=== PATIENT | female | born 2000 | race Caucasian/White ===

== ENCOUNTER 2023-02-01 11:18 | Emergency (ER) | payer OTHER, SELFPAY ==
--- NOTE | ~2023-02-01 | US_ITS ---
US venous doppler LE RT DATE: 02/01/2023 12:27 INDICATION: Redness and swelling of right calf. By 8 3 days ago. TECHNIQUE: Real-time and color flow imaging and Doppler analysis of the veins of the right lower extr emity COMPARISON: None FINDINGS: The right greater saphenous vein is patent. There is spontaneous and phasic flow and normal augmentation and color flow signal and normal compression of the right common femoral, femoral, popl iteal, posterior tibial and peroneal veins. IMPRESSION: No evidence of deep venous thrombosis of right leg Reviewed, dictated and finalized at [facility]. Reviewed, dictated and finalized at [facility].
[2023-02-01 11:21] VITALS: BP 140/84; PULSE 110; RESP 16; TEMP 36.8; O2SAT 99
--- NOTE | 2023-02-01 13:20 | ED.SKABFB ---
HPI - Skin/Abscess/Foreign Bdy General Chief complaint: Skin/Abscess/Foreign Body Stated complaint: bug bite Time Seen by Provider: 02/01/23 12:04 Source: patient Mode of arrival: ambulatory Limitations: no limitations History of Present Illness HPI narrative: Patient is a 22-year-old female who presents ED with report of cellulitis to her right calf. Patient reports she was walking outside on Sunday and felt something bite her in her R upper calf. She has since developed an area of pain, redness, induration, warmth to her calf. She was Rx'd Doxycycline yesterday and outlined the erythema with a skin marker. She has had two doses of the Doxy so far. She noted the redness to have spread past her marked outline today which prompted her presentation. Denies any drainage from area. Denies fevers. Denies N/V. Review of Systems Review of Systems: CONSTITUTIONAL: Denies fever, chills, or sweats. GASTROINTESTINAL: Denies nausea, vomiting. SKIN: See HPI. MUSCULOSKELETAL: See HPI. All systems reviewed & are unremarkable except as noted in HPI and below Exam Narrative: GENERAL: Well appearing, well-nourished, non-toxic, in no acute distress. HEAD: Normocephalic, atraumatic. NECK: Supple. No adenopathy, no masses. RESPIRATORY: Airway patent, respirations nonlabored. Clear to auscultation bilaterally, no rales, rhonchi, wheezing. CARDIOVASCULAR: Regular rate and rhythm without murmurs, rubs, or gallops. Pedal pulses 2+ and equal bilaterally. MUSCULOSKELETAL: Moves all extremities. Strength/ROM intact without gross deformities. Large area of induration, erythema, warmth, tenderness to palpation to R upper posterior calf. Small pustular area close to popliteal crease, no active drainage. No palpable fluctuance. SKIN: Warm, dry, normal color. No rashes. NEURO: A&O X3. Speech clear. Cranial nerves II-XII grossly intact. Steady gait. No ataxic movements. PSYCHIATRIC: Appropriate mood and affect. Normal interaction. Course Vital Signs Vital signs: Vital Signs Temperature 98.2 F 02/01/23 11:21 Pulse Rate 110 H 02/01/23 11:21 Respiratory Rate 16 02/01/23 11:21 Blood Pressure 140/84 02/01/23 11:21 Pulse Oximetry 99 02/01/23 11:21 Oxygen Delivery Room Air 02/01/23 11:21 Temperature 98.2 F 02/01/23 11:21 Pulse Rate 91 02/01/23 13:44 Respiratory Rate 16 02/01/23 11:21 Blood Pressure 136/72 02/01/23 13:44 Pulse Oximetry 99 02/01/23 13:44 Oxygen Delivery Room Air 02/01/23 11:21 MDM - Skin/Abscess/Foreign Bdy MDM Narrative Medical decision making narrative: Patient presented to ED with concern for cellulitis to R calf, erythema continuing to worsen, has had 2 doses of doxy so far. VSS upon arrival. Afebrile. Exam consistent with cellulitis. No obvious fluctuance or area of abscess. Bedside ultrasound utilized by myself and no focal areas of fluid collection noted. Venous Doppler ultrasound without evidence of DVT or other abnormalities. I advised patient that the antibiotics likely have not had enough time to be in her system and that the redness may continue to expand until the antibiotics have fully taken effect. I do believe doxycycline is an appropriate medication and advised patient to continue this. Will prescribe clindamycin in case patient does not have improvement over the next couple of days with doxycycline. Advised close follow-up with primary care doctor. Given return precautions. Discharged in stable condition. Medical Records Attestation: I reviewed the patient's medical records. Imaging Data Attestation: I personally reviewed and interpreted this imaging study as follows: Radiologist's impression: ITS Impressions Venous Doppler Study 02/01/23 12:34 IMPRESSION: No evidence of deep venous thrombosis of right leg Discharge Plan Discharge Clinical Impression: Cellulitis of right lower extremity Patient Disposition: Home, Self-Care Condition: Stable
[2023-02-01 13:44] VITALS: BP 136/72; PULSE 91; O2SAT 99
== END 2023-02-01 13:45 | disposition home or self-care (01) ==
PROVIDERS: Emergency Provider Physician Assistant; PCP Family Medicine
DX: L03.115 Cellulitis of right lower limb (principal)
CPT/HCPCS: 93971; 99284

== ENCOUNTER 2023-09-14 11:01 | Outpatient (CLI) | payer OTHER, SELFPAY ==
[2023-09-19 07:28] LABS: Progesterone 19.8 ng/mL (***)
== END 2023-09-14 11:02 | disposition home or self-care (01) ==
LOC: ANHLAB 11:03
PROVIDERS: PCP Family Medicine; Visit Provider Obstetrics & Gynecology
DX: O20.0 Threatened abortion (principal)
CPT/HCPCS: 36415; 84144; 84702

== ENCOUNTER 2023-09-19 14:15 | Outpatient (CLI) | payer OTHER, SELFPAY ==
--- NOTE | ~2023-09-19 | US_ITS ---
EXAMINATION: US OB <=14 wk fetus w TV DATE: 09/19/2023 16:12 INDICATION: First trimester TECHNIQUE: Real-time pelvic ultrasound utilizing both a transvaginal and transabdominal probe was pe rformed. The interpreting radiologist was not present for the study. COMPARISON: None. FINDINGS: The uterus measures 9.3 x 5.1 x 5.6 cm. There is an intrauterine gestational sac. A yolk sac and fet al pole are identified. The crown rump length measures 506 mm, which correlates with an estimated ges tational age of 6 weeks and 3 days. heart motion is identified measuring 120 beats per minute ( bpm) by M-mode Doppler. The right ovary measures 3.2 x 1.8 x 2.1 cm. The left ovary measures 3.1 x 2.8 x 2.2 cm. 2.6 x 2.0 cm thick-walled centrally anechoic corpus luteum cyst in the left ovary. There is no free fluid in the pelvis. IMPRESSION: 1. Single living fetus with heart rate of 120 bpm. 2. Gestational age by ultrasound of 6 weeks 3 day(s) +/- 3 day(s) with ultrasound estimated date of delivery (RUBÉN) of 05/11/2024. Reviewed, dictated and finalized at location [facility]. IMPRESSION: 1. Single living fetus with heart rate of 120 bpm. 2. Gestational age by ultrasound of 6 weeks 3 day(s) +/- 3 day(s) with ultraso und estimated date of delivery (RUBÉN) of 05/11/2024.
== END 2023-09-19 14:16 | disposition home or self-care (01) ==
LOC: ANHIMG 14:17
PROVIDERS: PCP Family Medicine; Visit Provider Obstetrics & Gynecology
DX: Z34.80 Encounter for supervision of other normal pregnancy, unspecified trimester (principal)
CPT/HCPCS: 76801; 76817

== ENCOUNTER 2024-02-09 10:24 | Outpatient (RCR) | payer OTHER, SELFPAY ==
[2024-02-09 11:55] LABS: Hematocrit 33.2 % (37.0-47.0); Hemoglobin 10.9 g/dL (12.0-15.0)
[2024-02-09 12:06] LABS: Glucose 1 Hour PP 50gm Dose 144 mg/dL
[2024-02-09 12:47] LABS: HIV 1/2 Ab P24 Ag Result Negative (Negative)
[2024-02-11 06:15] LABS: Rapid Plasma Reagin Non-Reactive (NonReactive)
== END 2024-05-09 23:59 | disposition home or self-care (01) ==
LOC: ANHLAB 10:24
PROVIDERS: PCP Family Medicine; Visit Provider Obstetrics & Gynecology
DX: Z11.4 Encounter for screening for human immunodeficiency virus [HIV] (principal); Z11.3 Encounter for screening for infections with a predominantly sexual mode of transmission; O36.0190 Maternal care for anti-D [Rh] antibodies, unspecified trimester, not applicable or unspecified; Z3A.00 Weeks of gestation of pregnancy not specified
CPT/HCPCS: 36415; 82947; 85014; 85018; 86592; 86703; G0432

== ENCOUNTER 2024-02-29 07:24 | Outpatient (CLI) | payer OTHER, SELFPAY ==
[2024-02-29 07:50] LABS: Glucose Fasting Gestational 88 mg/dL (>/=95)
[2024-02-29 09:15] LABS: Glucose 1 Hour Gest 158 mg/dL (>/=180)
[2024-02-29 10:27] LABS: Glucose 2 Hour Gest 121 mg/dL (>/= 155)
[2024-02-29 11:33] LABS: Glucose 3 Hour Gest 107 mg/dL (>/=140)
== END 2024-02-29 07:25 | disposition home or self-care (01) ==
PROVIDERS: PCP Family Medicine; Visit Provider Obstetrics & Gynecology
DX: Z34.83 Encounter for supervision of other normal pregnancy, third trimester (principal)
CPT/HCPCS: 36415; 82951; 82952

== ENCOUNTER 2024-03-25 09:20 | Outpatient (CLI) | payer OTHER, SELFPAY ==
--- NOTE | ~2024-03-25 | US_ITS ---
EXAMINATION: US OB follow up DATE: 03/25/2024 11:01 INDICATION: Estimated size greater than expected for estimated gestational age TECHNIQUE: Real-time ultrasound of the pelvis was performed. The interpreting radiologist was not pre sent for the study. COMPARISON: 09/19/2023 FINDINGS: There is a single living fetus in vertex presentation. The placenta is fundal. heart rate is 1 30 beats per minute (bpm). The amniotic fluid index is 16.0 cm, which is normal (5th%-95%: 8.3-24.5 cm at 33 weeks estimated gestational age). The following biometric data were obtained: BPD: 9.0 cm -> 36 weeks 2 days Head circumference: 31.6 cm -> 35 weeks 4 days Abdominal circumference: 31.3 cm -> 35 weeks 2 days Femur length: 6.1 cm -> 31 weeks 4 days These measurements are concordant. Head circumference to abdominal circumference ratio: 1.01 (normal range 0.93-1.11). Estimated weight: 2418 g (+/-) 363 g or 5 lbs. 5 oz. (+/-) 13 oz. IMPRESSION: 1. Single living fetus in vertex presentation with heart rate of 130 bpm. 2. Normal amniotic fluid index of 16.0 cm. 3. Estimated weight is 76th percentile by Hadlock criteria when 05/11/2024 is used as the estima demetrius date of delivery (RUBÉN). Please correlate with clinical information or earlier ultrasounds for mos t accurate RUBÉN. Reviewed, dictated and finalized at location [facility]. IMPRESSION: 1. Single living fetus in vertex presentation with heart rate of 130 bpm. 2. Normal amniotic fluid index of 16.0 cm. 3. Estimated weight is 76th percentile by Hadlock criteria when 05/11/2024 is used as the estimated date of delivery (RUBÉN). Please correlate with clinica l information or earlier ultrasounds for most accurate RUBÉN.
== END 2024-03-25 09:21 | disposition home or self-care (01) ==
PROVIDERS: PCP Family Medicine; Visit Provider Obstetrics & Gynecology
DX: O26.849 Uterine size-date discrepancy, unspecified trimester (principal); Z3A.00 Weeks of gestation of pregnancy not specified
CPT/HCPCS: 76816

== ENCOUNTER 2024-04-30 09:06 | Outpatient (CLI) | payer OTHER, SELFPAY ==
--- NOTE | ~2024-04-30 | US_ITS ---
EXAMINATION: US OB follow up DATE: 04/30/2024 10:33 INDICATION: Assess growth during third trimester TECHNIQUE: Real-time ultrasound of the pelvis was performed. The interpreting radiologist was not pre sent for the study. COMPARISON: None. FINDINGS: There is a single living fetus in vertex presentation. The placenta is fundal. heart rate is 1 39 beats per minute (bpm). The amniotic fluid index is 11.8 cm, which is normal. Normal cervical jeffery gth measuring approximately 4.7 cm. The following biometric data were obtained: BPD: 10.1 cm -> 41 weeks 4 days Head circumference: 34.6 cm -> 40 weeks 0 days Abdominal circumference: 37.3 cm -> 41 weeks 2 days Femur length: 7.5 cm -> 38 weeks 4 days Mildly increased cephalic index of 88, (normal 70-86) These measurements are otherwise concordant. Head circumference to abdominal circumference ratio: 0.93 (normal range 0.91-1.02). Estimated weight: 4152 g (+/-) 623 g or 9 lbs. 2 oz. (+/-) 1 lb. 6 oz. IMPRESSION: 1. Single living fetus in vertex presentation with heart rate of 139 bpm. 2. Normal amniotic fluid index of 11.8. 3. Estimated weight is >97th percentile by Hadlock criteria when 05/11/2024 is used as the estim ated date of delivery (RUBÉN). Please correlate with clinical information or earlier ultrasounds for mo st accurate RUBÉN. 4. Brachycephaly with the cephalic index of 88. Reviewed, dictated and finalized at location A. IMPRESSION: 1. Single living fetus in vertex presentation with heart rate of 139 bpm. 2. Normal amniotic fluid index of 11.8. 3. Estimated weight is >97th percentile by Hadlock criteria when 4 is used as the estimated date of delivery (RUBÉN). Please correlate with clinic al information or earlier ultrasounds for most accurate RUBÉN. 4. Brachycephaly with the cephalic index of 88.
== END 2024-04-30 09:07 | disposition home or self-care (01) ==
PROVIDERS: PCP Family Medicine; Visit Provider Obstetrics & Gynecology
DX: Z36.4 Encounter for antenatal screening for fetal growth retardation (principal)
CPT/HCPCS: 76816

== ENCOUNTER 2024-05-05 23:02 | Inpatient (IN) | payer OTHER, SELFPAY ==
[2024-05-05 23:36] VITALS: PULSE 104; O2SAT 99
[2024-05-05 23:41] VITALS: PULSE 109; O2SAT 99
[2024-05-05 23:42] VITALS: BP 138/78; PULSE 96
[2024-05-05 23:46] VITALS: PULSE 103; O2SAT 98
[2024-05-05 23:51] VITALS: PULSE 99; O2SAT 98
[2024-05-05 23:56] VITALS: PULSE 98; O2SAT 98
[2024-05-06] VITALS (189 sets, daily range): BP systolic 101–135; BP diastolic 48–92; PULSE 81–147; TEMP 36.4–37.8; O2SAT 95–100; BMI 38.5
--- NOTE | 2024-05-06 00:41 | LDADM ---
This patient, Jolanta Sousa, was admitted to Labor/Delivery/Recovery 109 on 05/05/24 at 23:02. Plans for labor, pain management and were discussed with patient. Patient/family oriented to hospital policies and general routines including ID bracelet, bed and alarms, visiting hours, pain management, procedures, bathroom and other care routines, personal items, smoking policy, room service/diet and guest tray routines, security routines, and visiting hours. Patient/Family are encouraged to report perceived risks to care and to ask questions if they do not understand what they are told or what they should do. See OBIX for further documentation.
[2024-05-06 00:43] LABS: Basophils Absolute Auto 0.1 K/mm3 (0.0-0.1); Basophils Percent Auto 0.8 % (0.2-1.2); Eosinophils Absolute Auto 0.1 K/mm3 (0-0.3); Eosinophils Percent Auto 0.8 % (0-4.4); Hematocrit 33.2 % (37.0-47.0); Hemoglobin 10.6 g/dL (12.0-15.0); Immature Granulocyte Percent A 4.3 % (0-0.5); Lymphocytes Absolute Auto 2.56 K/mm3 (0.9-3.2); Lymphocytes Percent Auto 18.2 % (18.3-44.2); Mean Corpuscular HGB Conc 31.9 g/dl (32-36); Mean Corpuscular Hemoglobin 25.3 pg (26-34); Mean Corpuscular Volume 79.2 fl (80-100); Mean Platelet Volume 10.2 fl (7.4-10.4); Monocytes Absolute Auto 1.3 K/mm3 (0.1-0.6); Monocytes Percent Auto 8.9 % (2.6-8.5); Neutrophils Absolute Auto 9.4 K/mm3 (1.3-6.7); Nucleated Red Blood Cells Perc 0.1 % (0.0-0.2); Platelet Count Result 287 k/mm3 (150-375); Red Blood Count 4.19 M/mm3 (4.2-5.4); Red Cell Distribution Width 15.6 % (11.5-14.5); White Blood Count 14.1 K/mm3 (4.5-10.0)
[2024-05-06 01:43] LABS: HIV 1/2 Ab P24 Ag Result Negative (Negative)
[2024-05-06] MEDS: DINOPROSTONE 10 MG VAG INSERT VAGINAL (02:30)
[2024-05-06 03:32] LABS: Rapid Plasma Reagin Non-Reactive (NonReactive)
[2024-05-06] MEDS: LORATADINE 10 MG TABLET PO ×2 (09:00→12:22)
--- NOTE | 2024-05-06 10:10 | PM.IMHP ---
H&P: HPI History of Present Illness Date/Time: 05/06/24 10:10 Chief Complaint: Here for induction of labor. Narrative: 23 y/o G1 at 39 2/7 weeks here for scheduled induction of labor. Ultrasound exam on 04/30 showed EFW 97th percentile, 9#2oz. Cervidil overnight, starting to feel some contractions. Also, she has had nasal congestion, felt flushed over the last day or two. No cough. No overt fever. Review of Systems Review of Systems: All systems reviewed & are unremarkable except as noted in HPI and below PMFSH Family History Family History Mother Breast cancer Chronic obstructive pulmonary disease Sibling Asthma Sibling Asthma Social History Social History Smoking status: Never smoker Do You Feel Safe in your Home?: Yes Lack of Transportation: YES Lack of Food: Never True Current Housing: I Have Housing Concerned About Future Housing: No Difficulty Paying Gas/Electric Bills: No Difficulty Paying for Meds: No Currently Unemployed: No Education: Bachelor's Degree Difficulty w/ Childcare or Family Care: No Spiritual care concerns: No Meds Home Medications and Allergies Home Medications Medication Instructions Recorded Confirmed Type vits no.126-ferrous fum 1 tablet PO DAILY 04/21/24 05/06/24 History 28 mg iron-folic acid 800 mcg tablet (Classic ) Allergies Allergy/AdvReac Type Severity Reaction Status Date / Time amoxicillin [From Augmentin] Allergy Rash Verified 05/06/24 07:20 clavulanic acid Allergy Rash Verified 05/06/24 07:20 [From Augmentin] Vital Signs Vital Signs - 24 hr 05/05/24 23:36 05/05/24 23:41 05/05/24 23:42 Temperature Pulse Rate 96 Blood Pressure 138/78 Pulse Oximetry 99 99 Oxygen Delivery 05/05/24 23:46 05/05/24 23:51 05/05/24 23:56 Temperature Pulse Rate Blood Pressure Pulse Oximetry 98 98 98 Oxygen Delivery 05/06/24 00:00 05/06/24 00:01 05/06/24 00:06 Temperature Pulse Rate 94 Blood Pressure 128/77 Pulse Oximetry 99 98 Oxygen Delivery 05/06/24 00:11 05/06/24 00:16 05/06/24 00:21 Temperature Pulse Rate Blood Pressure Pulse Oximetry 98 99 99 Oxygen Delivery 05/06/24 00:26 05/06/24 00:30 05/06/24 00:31 Temperature Pulse Rate 95 Blood Pressure 135/77 Pulse Oximetry 98 99 Oxygen Delivery 05/06/24 00:36 05/06/24 00:41 05/06/24 00:46 Temperature Pulse Rate Blood Pressure Pulse Oximetry 99 99 99 Oxygen Delivery 05/06/24 00:51 05/06/24 01:00 05/06/24 01:01 Temperature Pulse Rate 90 Blood Pressure 126/78 Pulse Oximetry 99 100 99 Oxygen Delivery 05/06/24 01:06 05/06/24 01:11 05/06/24 01:20 Temperature Pulse Rate Blood Pressure Pulse Oximetry 97 97 100 Oxygen Delivery 05/06/24 01:25 05/06/24 01:30 05/06/24 01:35 Temperature Pulse Rate 86 Blood Pressure 122/78 Pulse Oximetry 99 99 98 Oxygen Delivery 05/06/24 01:40 05/06/24 01:45 05/06/24 01:50 Temperature Pulse Rate Blood Pressure Pulse Oximetry 98 98 96 Oxygen Delivery 05/06/24 01:55 05/06/24 02:00 05/06/24 02:05 Temperature Pulse Rate 92 Blood Pressure 112/61 Pulse Oximetry 98 98 99 Oxygen Delivery 05/06/24 02:10 05/06/24 02:15 05/06/24 02:20 Temperature Pulse Rate Blood Pressure Pulse Oximetry 97 97 96 Oxygen Delivery 05/06/24 02:32 05/06/24 02:37 05/06/24 02:42 Temperature Pulse Rate 86 Blood Pressure 123/77 Pulse Oximetry 98 98 97 Oxygen Delivery 05/06/24 02:47 05/06/24 02:52 05/06/24 02:57 Temperature Pulse Rate Blood Pressure Pulse Oximetry 97 98 98 Oxygen Delivery 05/06/24 03:00 05/06/24 03:02 05/06/24 03:07 Temperature Pulse Rate 89 Blood Pressure 103/56 L Pulse Oximetry 98 99 Oxygen Delivery 05/06/24 03:12 05/06/24 03:17 05/06/24 03:22 Temperature Pulse Rate Blood Pressure Pulse Oximetry 98 97 97 Oxygen Delivery 05/06/24 03:27 05/06/24 03:30 05/06/24 03:32 Temperature Pulse Rate 85 Blood Pressure 109/64 Pulse Oximetry 97 99 Oxygen Delivery 05/06/24 03:37 05/06/24 03:42 05/06/24 03:47 Temperature Pulse Rate Blood Pressure Pulse Oximetry 96 97 97 Oxygen Delivery 05/06/24 03:52 05/06/24 03:57 05/06/24 04:00 Temperature Pulse Rate 91 Blood Pressure 104/67 Pulse Oximetry 97 97 Oxygen Delivery 05/06/24 04:02 05/06/24 04:07 05/06/24 04:12 Temperature Pulse Rate Blood Pressure Pulse Oximetry 96 97 97 Oxygen Delivery 05/06/24 04:17 05/06/24 04:22 05/06/24 04:27 Temperature Pulse Rate Blood Pressure Pulse Oximetry 97 98 98 Oxygen Delivery 05/06/24 04:30 05/06/24 04:32 05/06/24 04:37 Temperature 36.8 C Pulse Rate 88 Blood Pressure 107/69 Pulse Oximetry 99 98 Oxygen Delivery 05/06/24 04:42 05/06/24 04:51 05/06/24 04:56 Temperature Pulse Rate Blood Pressure Pulse Oximetry 98 100 100 Oxygen Delivery 05/06/24 05:00 05/06/24 05:01 05/06/24 05:06 Temperature Pulse Rate 86 Blood Pressure 101/60 Pulse Oximetry 100 98 Oxygen Delivery 05/06/24 06:45 05/06/24 09:04 05/06/24 07:00 Temperature 36.5 C 36.5 C Pulse Rate 98 Blood Pressure 129/72 Pulse Oximetry Oxygen Delivery 05/06/24 00:34 Temperature Pulse Rate Blood Pressure Pulse Oximetry Oxygen Delivery Room Air Exam Const: Orientation/consciousness: patient oriented x3 Other: Well-developed, well-nourished female in no acute distress. Neck: Thyroid: thyroid normal Lymphatic: no lymphadenopathy noted (in neck, axilla or inguinal nodes) Resp: Effort & Inspection: normal respiratory effort Auscultation: clear to auscultation bilaterally Cardio: Rate: regular rate Rhythm: regular rhythm Heart sounds: S1 normal heart sound present and S2 normal heart sound present GI: Other: ABD: Soft, nontender, nondistended, gravid. NST reactive. TOCO: irregular contractions. No guarding or rebound tenderness. No hepatosplenomegaly. : General: Yes no CVA tenderness Other: Cervix closed, 50%. Cervidil still in place. Back/Spine/Pelvis: Back: no CVA tenderness Skin: General skin exam: normal color and no rashes or lesions noted Neuro: General: patient oriented x3 Extrem: Other: Extremities: nontender with no edema Psych: Mental Status: mental status grossly normal Affect: normal affect H&P: Results Labs Labs: Short CBC 05/06/24 Range/Units 00:22 WBC 14.1 H (4.5-10.0) K/mm3 Hgb 10.6 L (12.0-15.0) g/dL Hct 33.2 L (37.0-47.0) % Plt Count 287 (150-375) k/mm3 Assessment and Plan Assessment and plan (1) Term : Code(s): Z34.90 - Encounter for supervision of normal , unspecified, unspecified trimester Status: Acute Assessment and Plan: A: IUP at 39 2/7 weeks. EFW 9#2oz a week ago. P: Cervidil induction. Plan to remove the Cervidil after 12h and reassess. Consider oxytocin at that time. Reviewed risks, benefits, alternatives in detail.
--- NOTE | 2024-05-06 15:22 | PM.OBPNLAB ---
Pain Control Date/time seen: 05/06/24 15:22 Feeling more contractions. Cervidil has been removed. Pelvic Exam Dilation (cm): 2 Effacement (%): 50 station: -2 Comments: AROM with clear fluid. IUPC placed. Contractions Contraction frequency: 3 Contraction pattern: Regular Status status: Category l Assessment and Plan Comments: Continue labor. Augment as needed.
[2024-05-06] MEDS: fentaNYL CITRATE INJ (*CRX) 100 MCG/2 ML VIAL 50 MCG IV PUSH (15:24)
[2024-05-06] MEDS: LACTATED RINGERS 1,000 ML 125 ML IV CONT ×2 (15:26→21:54)
[2024-05-06] MEDS: OXYTOCIN 30 UNITS/NS 500 ML 30 UNITS/500 ML BAG IV CONT (17:07)
--- NOTE | 2024-05-06 17:39 | WPDANESEPP ---
Anes - Eval Pre Procedure Date/Time: 05/06/24 17:39 Surgeon: Elena Pre Op Diagnosis: IOL Patient Data Age: 23 Gender: F Height: 1.5 m Weight: 86.4 kg Last Vital Signs Temp 36.4 C 05/06/24 15:30 Pulse 109 H 05/06/24 16:01 BP 126/68 05/06/24 16:01 Pulse Ox 99 05/06/24 16:07 O2 Del Method Room Air 05/06/24 00:34 Allergies Allergy/AdvReac Type Severity Reaction Status Date / Time amoxicillin [From Augmentin] Allergy Rash Verified 05/06/24 07:20 clavulanic acid Allergy Rash Verified 05/06/24 07:20 [From Augmentin] Home Medications Medication Instructions Recorded Confirmed Type vits no.126-ferrous fum 1 tablet PO DAILY 04/21/24 05/06/24 History 28 mg iron-folic acid 800 mcg tablet (Classic ) Laboratory Tests 05/06/24 00:22 WBC 14.1 H K/mm3 (4.5-10.0) RBC 4.19 L M/mm3 (4.2-5.4) Hgb 10.6 L g/dL (12.0-15.0) Hct 33.2 L % (37.0-47.0) MCV 79.2 L fl (80-100) MCH 25.3 L pg (26-34) MCHC 31.9 L g/dl (32-36) RDW 15.6 H % (11.5-14.5) Plt Count 287 k/mm3 (150-375) MPV 10.2 fl (7.4-10.4) Immature Gran % (Auto) 4.3 H % (0-0.5) Neut % (Auto) 67.0 % (45.5-73.1) Lymph % (Auto) 18.2 L % (18.3-44.2) Thomas % (Auto) 8.9 H % (2.6-8.5) Eos % (Auto) 0.8 % (0-4.4) Baso % (Auto) 0.8 % (0.2-1.2) Lymph # (Auto) 2.56 K/mm3 (0.9-3.2) Thomas # (Auto) 1.3 H K/mm3 (0.1-0.6) Eos # (Auto) 0.1 K/mm3 (0-0.3) Baso # (Auto) 0.1 K/mm3 (0.0-0.1) Abs Immat Gran (auto) 0.60 H K/mm3 (0.00-0.031) Absolute Neuts (auto) 9.4 H K/mm3 (1.3-6.7) Absolute Nucleated RBC 0.020 H K/mm3 (0.0-0.012) Nucleated RBC % 0.1 % (0.0-0.2) RPR Non-reactive (NonReactive) HIV 1&2 Ab/P24 Ag 4thGn Negative (Negative) Blood Type A Positive Antibody Screen Negative : gestational age (RUBÉN 05/11/24, ) Patient hx anesthesia problems: none Family hx anesthesia problems: none Results Review: All pre-operative results and documents have been reviewed as part of the pre-operative evaluation. [facility] Family History Family History Mother Breast cancer Chronic obstructive pulmonary disease Sibling Asthma Sibling Asthma Social History Social History Smoking status: Never smoker Do You Feel Safe in your Home?: Yes Lack of Transportation: YES Lack of Food: Never True Current Housing: I Have Housing Concerned About Future Housing: No Difficulty Paying Gas/Electric Bills: No Difficulty Paying for Meds: No Currently Unemployed: No Education: Bachelor's Degree Difficulty w/ Childcare or Family Care: No Spiritual care concerns: No Exam Day of Procedure 05/06/24 17:39 Patient weight: normal Heart: regular rate and rhythm Lungs: normal air movement Airway: Mallampati scale class II Neurological: alert and oriented
[2024-05-06] MEDS: ONDANSETRON INJ 4 MG/2 ML VIAL IV PUSH (23:14)
[2024-05-06] MEDS: ACETAMINOPHEN 500 MG TABLET 1000 MG PO (23:45)
[2024-05-07] VITALS (255 sets, daily range): BP systolic 86–150; BP diastolic 31–123; PULSE 96–152; RESP 12–21; TEMP 36.4–38.9; O2SAT 86–100
[2024-05-07] MEDS: LACTATED RINGERS 1,000 ML 125 ML IV CONT ×3 (02:28→14:11)
[2024-05-07] MEDS: ONDANSETRON INJ 4 MG/2 ML VIAL IV PUSH ×2 (05:08→13:31)
[2024-05-07] MEDS: ACETAMINOPHEN 500 MG TABLET 1000 MG PO (06:02)
[2024-05-07] MEDS: ceFAZolin 2 GM/D5W 50 ML 2 GM/50 ML BAG IVPB ×2 (06:03→15:26)
[2024-05-07 07:34] LABS: Influenza A QL RT-PCR Negative (Negative); Influenza B QL RT-PCR Negative (Negative); RSV RNA, RT-PCR Negative (Negative); SARS-CoV-2 RNA PCR Negative (Negative)
--- NOTE | 2024-05-07 08:59 | PM.OBPNLAB ---
Pain Control Date/time seen: 05/07/24 08:59 Comments: Comfortable. Had a temp 102.1F overnight, now on Ancef. Has defervesced. Pelvic Exam Dilation (cm): 6 Effacement (%): 90 station: -1 Contractions Contraction frequency: 3 Contraction pattern: Regular Status status: Category l Assessment and Plan Comments: A: IUP at term with protracted dilation. Fever in labor. P: Continue Ancef. Because cervix has changed, continue labor. I discussed the possibility of delivery today, however.
--- NOTE | 2024-05-07 12:59 | PM.OBPNLAB ---
Pain Control Date/time seen: 05/07/24 12:59 Comments: Comfortable. Pelvic Exam Dilation (cm): 6 Effacement (%): 90 station: -1 Contractions Contraction frequency: 3 Contraction pattern: Regular Status status: Category l Assessment and Plan Comments: A: IUP at term with arrest of dilation. P: Offered primary . She understands risks of surgery to include risks of anesthesia, risks of pain, infection, bleeding, blood products, thromboembolic phenomena and damage to adjacent structures such as bowel, bladder, ureters, blood vessels and nerves. She understands all these risks and elects to proceed with surgery.
[2024-05-07] MEDS: AZITHROMYCIN 500 MG/NS 250 ML 500 MG/250 ML BAG 250 MG IVPB (13:12)
[2024-05-07] MEDS: ACETAMINOPHEN 500 MG TABLET 1000 MG (13:15)
[2024-05-07] MEDS: FAMOTIDINE 20 MG/2 ML VIAL IV PUSH (13:29)
--- NOTE | 2024-05-07 14:57 | P.PNAN_ITS ---
Anes - Eval Final PreProcedure Day of Procedure 05/07/24 14:57 Patient weight: obese Airway: Mallampati scale class II Neurological: alert and oriented ASA classification: II Emergent: no Anesthetic plan: proceed Anesthesia type and monitoring: regional epidural and standard monitoring Other findings: use epid for c/s Results Review: All pre-operative results and documents have been reviewed as part of the pre- operative evaluation. Informed Consent: The patient's anesthetic plan and its attendant risks and benefits were discussed with the patient/family/POA. Questions were solicited and answers provided to the satisfaction of the patient/family/POA.
--- NOTE | 2024-05-07 16:14 | W.PM.OBCSD ---
OB - Delivery Note Procedure Delivery date: 05/07/24 Pre-op diagnosis: Arrest of Dilation Post-op Diagnosis: Same Induction method: Per Cervidil Protocol Delivery augmentation: Rupture of Membranes and Pitocin Delivery monitor: External FHT, External Uterine and Internal Uterine Procedure Performed: Primary Surgeon: Juan Parker MD Anesthesia type: Epidural Description of Procedure/Findings: Findings: Normal-appearing uterus, tubes and ovaries. Baby in OP position. Techniques: The patient was taken to the operating room where she was prepared and draped in the usual sterile fashion in dorsal supine position with a leftward tilt. She received cefazolin and azithromycin preoperatively. Epidural anesthesia was found to be adequate. A Pfannenstiel skin incision was made and carried through to the underlying layer of the fascia. The fascia was incised in the midline and the incision was extended laterally. The fascia was dissected free of the underlying rectus muscles. The rectus muscles were in the midline. The peritoneum was identified, tented up and entered sharply. The peritoneal incision was extended superiorly and inferiorly with good visualization of the bladder. The bladder blade was placed. The vesicouterine peritoneum was identified, tented up and entered sharply. The incision was extended laterally and the bladder flap was developed. The bladder blade was replaced. The uterus was then incised sharply in a transverse fashion along the lower uterine segment. The incision was extended laterally. The 's head was delivered atraumatically to the sterile field, followed by the body. The nose and mouth were bulb suctioned. After a delay, the cord was clamped and cut. The was handed off the field. Cord blood was collected. The placenta was removed manually and was passed off the field. The uterus was exteriorized and cleared of all clots and debris. The uterine incision was reapproximated using 0 Monocryl in a running, locked fashion. A second, imbricating layer of the same suture was run. Excellent hemostasis resulted as did excellent reapproximation of the normal anatomy. The uterus was returned the abdomen. The pelvis was irrigated copiously with warmed normal saline. Rigorous hemostasis was assured. The fascial layer was reapproximated using 0 Vicryl in a running fashion. The skin was closed with a running, subcuticular stitch of 4 0 Vicryl. Dermaflex was applied externally. Sponge, lap, needle and instrument counts were correct. The patient was taken to the recovery room in stable condition. The went to the nursery in stable condition. I was present and scrubbed the entire procedure. Specimen: Yes (cord blood) Estimated Blood Loss: 760 Drains: Yes (grissom) Packing: No Pathology: None sent Complications: None Condition: Stable Disposition: PACU [facility] Date of : 05/07/24 Time of : 15:44 Gestational Age by Date: 39 Infant gender: Male Weight (pounds): 8 Weight (ounces): 11 presentation: vertex Placenta delivery description: Manual Removal and Normal Configuration Cord Vessel Description: 3 Vessels and Delayed Cord Clamping score one minute: 8 score five minutes: 9
--- NOTE | 2024-05-07 16:17 | P.DS_ITS ---
DS: Admitting Diagnosis Discharge Date 05/09/2024 <Brandon Garcia MD - Last Filed: 05/09/24 07:14> Admitting Diagnosis IUP at 39 3/7 weeks <Juan Parker MD - Last Filed: 05/12/24 08:48> DS: Discharge Diagnosis Discharge Diagnosis (1) delivery delivered: Code(s): O82 - Encounter for delivery without indication <Juan Parker MD - Last Filed: 05/12/24 08:48> Status: Acute <Juan Parker MD - Last Filed: 05/12/24 08:48> OB - DS: Summary OB Procedures : None <Juan Parker MD - Last Filed: 05/12/24 08:48> OB Procedures Intrapartum: <Juan Parker MD - Last Filed: 05/12/24 08:48> OB Procedures: : None <uJan Parker MD - Last Filed: 05/12/24 08:48> Peripartum Data Procedures: Procedures Operation Date: 05/07/24 14:00 <No data on this case meets the specified criteria> <Juan Parker MD - Last Filed: 05/12/24 08:48> Time Spent with Patient Time attestation: Total time spent providing and/or coordinating discharge services: <Juan Parker MD - Last Filed: 05/12/24 08:48> DS: Data Data Completed and Pending Labs on day of discharge: Labs from last 24 hours 05/07/24 06:53 Influenza A (RT-PCR) Negative Influenza B (RT-PCR) Negative RSV (RT-PCR) Negative SARS-CoV-2 RNA (RT-PCR) Negative <Juan Parker MD - Last Filed: 05/12/24 08:48> Discharge Plan Discharge Attending physician on discharge: Juan Parker <Juan Parker MD - Last Filed: 05/12/24 08:48> Juan Parker <Brandon Garcia MD - Last Filed: 05/09/24 07:14> Consulting providers: Brinda Stewart; Jarred Miller <Juan Parker MD - Last Filed: 05/12/24 08:48> Discharging Clinician: Juan Parker <Juan Parker MD - Last Filed: 05/12/24 08:48> Juan Parker <Brandon Garcia MD - Last Filed: 05/09/24 07:14> Patient Disposition: Home, Self-Care <Juan Parker MD - Last Filed: 05/12/24 08:48> Activity: may shower, may drive after 2 weeks and pelvic rest <Juan Parker MD - Last Filed: 05/12/24 08:48> may shower, may drive after 2 weeks and pelvic rest <Brandon Garcia MD - Last Filed: 05/09/24 07:14> Diet: regular <Juan Parker MD - Last Filed: 05/12/24 08:48> regular <Brandon Garcia MD - Last Filed: 05/09/24 07:14> Wound Care Instructions: incision open to air <Juan Parker MD - Last Filed: 05/12/24 08:48> incision open to air <Brandon Garcia MD - Last Filed: 05/09/24 07:14> Discharge Instructions: Education: Mom and Baby Guide Given to: Mother Follow-Up: Call your delivering provider's office for an appointment to be seen in: 4 Weeks Mom and baby should come to the [facility] for the follow-up appointment. Appointment Date/Time: May 10, 2024 at 11:00 am What to expect at your follow-up visit: Physical Assessment Call [phone] if you are unable to keep your appointment time. BREAST CARE: * Wear a snug supportive bra. * For engorgement discomfort: Breast Feeding: * Apply warm moist washcloths * Express milk as needed to relieve engorgement * Wear loose clothing Bottle Feeding: * May apply ice packs * For sore nipples: * Identify correct latch-on * Apply warm moist washcloths before and after nursing * Air dry nipples after nursing * May apply Lansinoh cream to nipples ABDOMINAL INCISION: (if applicable) * Allow incision to air dry * Do NOT use lotions for powders on your incision * When showering, allow soap and water to run over the incision, but do not wash incision EPISIOTOMY/PERINEAL CARE: * Until bleeding stops, use your clarence bottle after urinating * Change your pad frequently throughout the day * You may take sitz baths several times a day (fill your bathtub with warm water and soak for 20 minutes.) Do NOT bathe in the water * No tub baths until seen by your physician - You may shower ACTIVITY: * Rest as much as possible. * Do not exercise or lift anything heavier than your baby (such as laundry or other children.) * Avoid stairs or driving as much as possible. * Do not put anything into the vagina. No douching, tampons, or sexual activity until seen by physician. NOTIFY PHYSICIAN IF YOU HAVE ANY QUESTIONS OR IF ANY OF THE FOLLOWING SYMPTOMS OCCUR: * If your episiotomy or incision becomes red, swollen, or more painful than what you have experienced in the hospital. * If your vaginal bleeding becomes foul smelling. * If your vaginal bleeding becomes more heavy than a period or if your bleeding changes from pink to bright red. However, you may pass an occasional walnut- sized clot once or twice for the first week . * If you experience a sharp, shooting pain in you calves. * If you discover a hard, reddened area on your breast or if you experience flu- like symptoms. DIET: * Eat regular, well-balanced meals. * Drink plenty of fluids daily. If , drink to thirst. Call or return if temperature above 100.4? F, increased abdominal pain, increased vaginal bleeding or any new problems. <Juan Parker MD - Last Filed: 05/12/24 08:48> Stand Alone Forms: General Discharge Information <Juan Parker MD - Last Filed: 05/12/24 08:48> Follow-up/Referrals: Juan Parker MD [Physician] - 4 Weeks <Juan Parker MD - Last Filed: 05/12/24 08:48> Discharge Medications: New ibuprofen 600 mg tablet 600 mg PO Q6H PRN (Reason: cramps) Qty: 30 0RF hydrocodone-acetaminophen 5-325 mg tablet 1 - 2 tablet PO Q6H PRN (Reason: pain) Qty: 30 0RF ferrous sulfate 325 mg (65 mg iron) tablet 325 mg PO DAILY Qty: 30 0RF Continued Classic 28 mg iron- 800 mcg Tablet 1 tablet PO DAILY No Action furosemide 20 mg Tablet 20 mg PO QMWF Qty: 3 0RF <Juan Parker MD - Last Filed: 05/12/24 08:48> Date of admission: 05/05/24 23:02 <Juan Parker MD - Last Filed: 05/12/24 08:48> Primary Care Provider: Margret Vogel <Juan Parker MD - Last Filed: 05/12/24 08:48> Admitting Provider: Juan Parker <Juan Parker MD - Last Filed: 05/12/24 08:48> Attending physician on admission: Brandon Boyer <Juan Parker MD - Last Filed: 05/12/24 08:48> Condition: Stable <Juan Parker MD - Last Filed: 05/12/24 08:48>
[2024-05-07] MEDS: OXYTOCIN 30 UNITS/NS 500 ML 30 UNITS/500 ML BAG 125 UNITS IV CONT (17:55)
--- NOTE | 2024-05-07 18:25 | OBPPTRN ---
Patient transferred to post room #282 via stretcher. Support person present. Oriented to unit, room, information board, rooming in, admission packet and security measures. Patient verbalizes understanding.
[2024-05-07] MEDS: LIDOCAINE 5% PATCH 1 PATCH TRANSDERM (19:15)
[2024-05-07] MEDS: KETOROLAC 15 MG/ML VIAL (*BKC) IV PUSH (19:15)
[2024-05-07] MEDS: ACETAMINOPHEN 325 MG TABLET 650 MG PO (19:15)
[2024-05-07] MEDS: DEXTROSE 5%/0.45% SOD CHL 1,000 ML 125 ML IV CONT (21:28)
[2024-05-08] MEDS: KETOROLAC 15 MG/ML VIAL (*BKC) IV PUSH ×3 (01:45→13:45)
[2024-05-08] MEDS: ACETAMINOPHEN 325 MG TABLET 650 MG PO ×4 (01:45→20:41)
[2024-05-08 05:09] LABS: Basophils Absolute Auto 0.1 K/mm3 (0.0-0.1); Basophils Percent Auto 0.4 % (0.2-1.2); Eosinophils Absolute Auto 0.1 K/mm3 (0-0.3); Eosinophils Percent Auto 0.2 % (0-4.4); Hematocrit 26.7 % (37.0-47.0); Hemoglobin 8.2 g/dL (12.0-15.0); Immature Granulocyte Absolute 1.11 K/mm3 (0.00-0.031); Immature Granulocyte Percent A 4.2 % (0-0.5); Lymphocytes Absolute Auto 1.65 K/mm3 (0.9-3.2); Lymphocytes Percent Auto 6.2 % (18.3-44.2); Mean Corpuscular HGB Conc 30.7 g/dl (32-36); Mean Corpuscular Hemoglobin 24.6 pg (26-34); Mean Corpuscular Volume 80.2 fl (80-100); Mean Platelet Volume 10.7 fl (7.4-10.4); Monocytes Absolute Auto 2.3 K/mm3 (0.1-0.6); Monocytes Percent Auto 8.8 % (2.6-8.5); Neutrophils Absolute Auto 21.4 K/mm3 (1.3-6.7); Neutrophils Percent Auto 80.2 % (45.5-73.1); Platelet Count Result 233 k/mm3 (150-375); Red Blood Count 3.33 M/mm3 (4.2-5.4); White Blood Count 26.6 K/mm3 (4.5-10.0)
[2024-05-08 05:29] LABS: Platelet Estimate Adequate (Adequate)
[2024-05-08 05:30] LABS: Hypochromasia 1+; Microcytosis 2+ (NORMAL); Ovalocytes 1+; Schistocytes None Seen
[2024-05-08] MEDS: POLYSACCHARIDE IRON COMPLEX 150 MG CAPSULE PO ×2 (07:11→17:20)
[2024-05-08] MEDS: MULTIVIT/MIN/PREN/FOL AC/IRON TABLET 1 TAB PO (07:11)
[2024-05-08] MEDS: DOCUSATE SODIUM 100 MG CAPSULE PO ×2 (07:11→17:20)
[2024-05-08] MEDS: SIMETHICONE 80 MG TAB.CHEW PO ×3 (07:11→17:19)
[2024-05-08 07:50] VITALS: BP 98/56; PULSE 88; RESP 18; TEMP 36.4; O2SAT 92
--- NOTE | 2024-05-08 10:10 | PC.NURSE ---
[phone] Introductions were made, then consulted with patient to assess needs related to . Discussed with mother her?plans to feed?her infant and the?experience so far. Mother had done her own research regarding her inverted nipples and she had brought her own manual pump and her own electric pump, she also brought her own nipple shield if she decided to put baby to breast. Mother stated she was comfortable with pumping and bottle feeding and said she would let us know if she decides to put baby to breast. RN encouraged understanding the benefits of skin to skin and responding to feeding cues. Instructions given on cleaning, care, usage, that there should be no pain, pumping schedule for milk production, collection, and storage of human milk. Patient was assessed for correct placement, flange size (both nipples were 21-22mm, patient using a size 25 flange for both her pumps), to pump for comfort and nipple stretching/stimulation for adequate milk production every 3 hours (8 times in 24 hours) 1-2 times at night. Parents are encouraged to record the pumping schedule on the feeding sheet.?Mother voiced understanding of the education shared along with mom/baby guide and the pump measurement, flange fit handout for additional resource information. Mother was given Book along with Pumping handout. Resources provided for inpatient and outpatient services with the feeding sheet, mom/baby guide and name written on the communication board. Mother voiced understanding of information and will call if there is a request for assistance. Reported to the Primary RN.
--- NOTE | 2024-05-08 11:46 | P.PNOB_ITS ---
OB - PN: Subj Subjective Date/time seen: 05/08/24 11:46 Narrative: Pain OK. Would like circumcision for son. Tolerating diet. OB - PN: Obj Data Labs 05/08/24 04:33 Labs: Laboratory Results - last 24 hr 05/08/24 04:33 WBC 26.6 H RBC 3.33 L Hgb 8.2 L Hct 26.7 L MCV 80.2 MCH 24.6 L MCHC 30.7 L RDW 16.0 H Plt Count 233 MPV 10.7 H Immature Gran % (Auto) 4.2 H Neut % (Auto) 80.2 H Lymph % (Auto) 6.2 L Vernon % (Auto) 8.8 H Eos % (Auto) 0.2 Baso % (Auto) 0.4 Lymph # (Auto) 1.65 Vernon # (Auto) 2.3 H Eos # (Auto) 0.1 Baso # (Auto) 0.1 Abs Immat Gran (auto) 1.11 H Absolute Neuts (auto) 21.4 H Absolute Nucleated RBC 0.000 Nucleated RBC % 0.0 Platelet Estimate Adequate Hypochromasia 1+ Microcytosis 2+ Ovalocytes 1+ Schistocytes None seen OB - PN A/P Plan day: 1 Comments: A: POD#1, doing well. P: Reviewed circ. Routine care. Exam Narrative: AVSS I/O OK ABD soft, nontender, fundus firm. Incision c/d/i. EXT nontender
[2024-05-08 11:55] VITALS: BP 114/68; PULSE 112; RESP 16; TEMP 36.6; O2SAT 96
[2024-05-08 18:35] VITALS: BP 108/65; PULSE 103; RESP 16; TEMP 36.6; O2SAT 98
--- NOTE | 2024-05-08 18:39 | WPDANLDPN2 ---
Anes-Prog Note L&D Date/Time: 05/08/24 18:39 Comfortable throughout: labor and section Neuraxial method: epidural Epidural/Spinal procedure site: clean & non-tender Neuro status: Neuro function grossly intact. Cardiovascular status: normal Respiratory status: normal Airway patency: baseline Mental status: baseline Post-Op hydration status: normal Vital Signs: Last Vital Signs Temp 36.6 C 05/08/24 11:55 Pulse 112 H 05/08/24 11:55 Resp 16 05/08/24 11:55 BP 114/68 05/08/24 11:55 Pulse Ox 96 05/08/24 11:55 O2 Del Method Room Air 05/07/24 18:21 Pain score (VAS): 07/18 I/O: Intake & Output 05/08/24 05/08/24 05/08/24 07:59 15:59 23:59 Output Total 575 400 Balance -575 -400 Post-procedural complaints: none Patient feedback: Patient satisfied with anesthetic care.
--- NOTE | 2024-05-08 18:40 | WPDANLDNPN2 ---
Anes-Prog Note L&D-Neuraxial Date/Time: 05/08/24 18:40 Neuraxial medications: epidural PF morphine Opiod-related complaints: none Patient feedback: Patient satisfied with post-operative pain management.
[2024-05-08] MEDS: IBUPROFEN 600 MG TABLET PO (20:41)
[2024-05-09] MEDS: ACETAMINOPHEN 325 MG TABLET 650 MG PO (02:34)
[2024-05-09] MEDS: IBUPROFEN 600 MG TABLET PO (02:34)
[2024-05-09] MEDS: MULTIVIT/MIN/PREN/FOL AC/IRON TABLET 1 TAB PO (06:55)
[2024-05-09] MEDS: SIMETHICONE 80 MG TAB.CHEW PO (06:55)
[2024-05-09] MEDS: DOCUSATE SODIUM 100 MG CAPSULE PO (06:55)
[2024-05-09] MEDS: POLYSACCHARIDE IRON COMPLEX 150 MG CAPSULE PO (06:55)
[2024-05-09] MEDS: INFLUENZA TRIVALENT VACCINE 45 MCG/0.5 ML SYRINGE IM (07:13)
--- NOTE | 2024-05-09 07:14 | PM.OBPNVD ---
OB - PN: Subj Subjective Date/time seen: 05/09/24 07:14 Patient comments: no complaints and pain well controlled baby status: doing well and nursing well OB - PN: Obj Data Labs 05/08/24 04:33 OB - PN A/P Plan day: 2 Plan: routine care, discharge home and follow up 6 weeks (4) Time Spent With Patient Time: Total time spent is greater than 50% in coordination of care (as documented) at patient's floor/unit and/or counseling patient: Time with patient: less than 15 minutes Exam Const: General: cooperative, healthy appearing and comfortable Nutritional Appearance: average body habitus Orientation/consciousness: oriented to person, oriented to place and oriented to time Resp: Effort & Inspection: normal respiratory effort Cardio: Rate: regular rate Rhythm: regular rhythm Heart sounds: S1 normal heart sound present and S2 normal heart sound present GI: Inspection: normal to inspection and incision (cdi)
--- NOTE | 2024-05-09 08:09 | PC.NURSE ---
Mother verbalizes she is able to independently use her breast pump. She denies any nipple discomfort and is responsively pumping. is currently meeting outcomes for weight, output, jaundice and feeding frequencies. Mother declines any additional assistance or education at this time. Mother is encouraged to call for assistance with any questions or concerns. Mother voiced understanding of information shared along with the mom/baby guide for an additional resource. Reported to the Primary RN.
[2024-05-09 08:30] VITALS: BP 123/79; PULSE 108; RESP 16; TEMP 36.2; O2SAT 100
[2024-05-10 11:40] VITALS: BP 127/78; PULSE 82; RESP 18; TEMP 36.3; O2SAT 100
--- NOTE | 2024-05-12 08:49 | WPDHPUPDATE1 ---
History and Physical Update Update Date/Time: 05/12/24 08:49 History and Physical has been reviewed, including an updated exam of the patient. There are NO changes in the patient's condition. Risks, benefits, and alternatives have been discussed and questions answered. Patient agrees to proceed with procedure.
== END 2024-05-09 11:50 | disposition home or self-care (01) | DRG 788 ==
LOC: ANHLDR 05-07 15:07 → ANHOB2 05-09 09:15 → ANHLDR 05-12 08:25
PROVIDERS: Admitting Provider Obstetrics & Gynecology; PCP Family Medicine; Visit Provider Obstetrics & Gynecology
PROC: 10D00Z1 Extraction of Products of Conception, Low, Open Approach (ICD-10-PCS; CPT 59514; principal; 2024-05-07 14:00)
DX: O75.2 Pyrexia during labor, not elsewhere classified (principal); Z37.0 Single live birth; Z3A.39 39 weeks gestation of pregnancy; O62.1 Secondary uterine inertia; Z23 Encounter for immunization
CPT/HCPCS: 36415; 85025; 86592; 86703; 86850; 86900; 86901; 87637; 90471; 90656; A9270; G0008; G0432; J0456; J0690; J1885; J2003; J2274; J2405; J2590; J2795; J3010; J7120

== ENCOUNTER 2024-05-10 11:55 | Outpatient (CLI) | payer OTHER, SELFPAY ==
[2024-05-10] VITALS (16 sets, daily range): BP systolic 121–130; BP diastolic 72–79; PULSE 90–107; TEMP 37.1; O2SAT 93–100
--- NOTE | ~2024-05-10 | XR_ITS ---
EXAMINATION: XR chest 2V DATE: 05/10/2024 12:44 INDICATION: Chest tightness and shortness of breath TECHNIQUE: PA and lateral views of the chest were obtained. COMPARISON: Chest radiograph dated 09/21/2021 FINDINGS: The lungs remain clear with no focal airspace opacities, pulmonary edema, pleural effusion or pneumot horax. The cardiomediastinal silhouette is normal. Visualized bones and soft tissues are unremarkable . IMPRESSION: 1. Normal chest radiograph. Reviewed, dictated and finalized at location A. IMPRESSION: 1. Normal chest radiograph.
[2024-05-10 12:28] LABS: Basophils Absolute Auto 0.1 K/mm3 (0.0-0.1); Basophils Percent Auto 0.7 % (0.2-1.2); Eosinophils Absolute Auto 0.2 K/mm3 (0-0.3); Eosinophils Percent Auto 1.1 % (0-4.4); Hematocrit 23.7 % (37.0-47.0); Hemoglobin 7.2 g/dL (12.0-15.0); Immature Granulocyte Absolute 1.26 K/mm3 (0.00-0.031); Immature Granulocyte Percent A 8.8 % (0-0.5); Lymphocytes Absolute Auto 2.02 K/mm3 (0.9-3.2); Lymphocytes Percent Auto 14.1 % (18.3-44.2); Mean Corpuscular HGB Conc 30.4 g/dl (32-36); Mean Corpuscular Hemoglobin 24.4 pg (26-34); Mean Corpuscular Volume 80.3 fl (80-100); Mean Platelet Volume 9.8 fl (7.4-10.4); Monocytes Absolute Auto 0.7 K/mm3 (0.1-0.6); Neutrophils Percent Auto 70.3 % (45.5-73.1); Nucleated Red Blood Cells Perc 0.4 % (0.0-0.2); Platelet Count Result 264 k/mm3 (150-375); Red Blood Count 2.95 M/mm3 (4.2-5.4); Red Cell Distribution Width 16.1 % (11.5-14.5); White Blood Count 14.3 K/mm3 (4.5-10.0)
[2024-05-10 12:49] LABS: Anisocytosis 1+; Hypochromasia 1+; Platelet Estimate Adequate (Adequate); Schistocytes None Seen
--- NOTE | 2024-05-10 13:18 | PC.NURSE ---
1306--Report to Dr. Hobson re: CXR results, CBC, v.s., physical assessment. Orders for lasix 20mg po with Rx for 20mg lasix po every other day at home X3 doses, then DC pt. home after po dose given.
[2024-05-10] MEDS: FUROSEMIDE 20 MG TABLET PO (13:30)
== END 2024-05-10 13:44 | disposition home or self-care (01) ==
LOC: ANHOBOP 12:05 → ANHOBPP 12:06
PROVIDERS: Obstetrics & Gynecology; PCP Family Medicine; Visit Provider Obstetrics & Gynecology
DX: R07.89 Other chest pain (principal); R06.02 Shortness of breath
CPT/HCPCS: 36415; 71046; 85025; A9270

== ENCOUNTER 2024-05-16 10:16 | Emergency (ER) | payer OTHER, SELFPAY ==
[2024-05-16 10:39] VITALS: BP 144/99; PULSE 75; RESP 16; TEMP 37.4; O2SAT 99
--- NOTE | 2024-05-16 10:40 | ED.URI ---
HPI - URI/Sore Throat General Chief Complaint: Fever <Berenice Lugo NP - Last Filed: 05/16/24 10:42> Stated Complaint: fever,elevated blood pressure <Berenice Lugo NP - Last Filed: 05/16/24 10:42> Time Seen by Provider: 05/16/24 11:04 <Berenice Lugo NP - Last Filed: 05/16/24 10:42> Source: patient and RN notes reviewed <Berenice Lugo NP - Last Filed: 05/16/24 10:42> Mode of arrival: ambulatory <Berenice Lugo NP - Last Filed: 05/16/24 10:42> Limitations: no limitations <Berenice Lugo NP - Last Filed: 05/16/24 10:42> History of Present Illness HPI Narrative: This is a 23-year-old female patient status post delivery, , 2 days of labor S passed 7 cm dilation. Patient was induced 39 weeks due to large fetus size. No complications during , specifically no gestational diabetes, no hypertension, and no proteinuria. Patient reports she had fever and sore throat the day of induction and tested negative for flu/RSV/Covid. She was treated with abx while in the hospital. Patient states she has been taking Tylenol and ibuprofen around the clock for pain and has not had fever until yesterday when she was no longer taking them around the clock. No Tylenol/ibuprofen today. She called RN RESOURCE NURSE yesterday and was told she was probably ok. <Juan Montenegro APRN - Last Filed: 05/16/24 11:26> elicited complaint: cough and sore throat <Berenice Lugo NP - Last Filed: 05/16/24 10:42> Related Data Allergies/Adverse Reactions: Allergies Allergy/AdvReac Type Severity Reaction Status Date / Time amoxicillin [From Augmentin] Allergy Rash Verified 05/16/24 11:11 clavulanic acid Allergy Rash Verified 05/16/24 11:11 [From Augmentin] <Berenice Lugo NP - Last Filed: 05/16/24 10:42> Review of Systems Review of Systems: CONSTITUTIONAL: Denies malaise, chills, sweats, or fever. EYES: Denies visual changes, redness, or discharge. ENT: Reports rhinorrhea, congestion, sinus pain, otalgia and sore throat. CARDIOVASCULAR: Denies chest pain, palpitations, or edema. RESPIRATORY: Reports cough. Denies dyspnea. GASTROINTESTINAL: Denies abdominal pain, nausea, vomiting, diarrhea SKIN: Denies rash or itching. MUSCULOSKELETAL: Denies myalgia. NEUROLOGIC: Denies headache. <Berenice Lugo NP - Last Filed: 05/16/24 10:42> All systems reviewed & are unremarkable except as noted in HPI and below <Berenice Lugo NP - Last Filed: 05/16/24 10:42> PMFSH Family History Family History: Family History Mother Breast cancer Chronic obstructive pulmonary disease Sibling Asthma Sibling Asthma <Berenice Lugo NP - Last Filed: 05/16/24 10:42> Social History Social History: Social History Smoking status: Never smoker Do You Feel Safe in your Home?: Yes Lack of Transportation: YES Lack of Food: Never True Current Housing: I Have Housing Concerned About Future Housing: No Difficulty Paying Gas/Electric Bills: No Difficulty Paying for Meds: No Currently Unemployed: No Education: Bachelor's Degree Difficulty w/ Childcare or Family Care: No Spiritual care concerns: No <Berenice Lugo NP - Last Filed: 05/16/24 10:42> Comments At time of signature, agree with nursing past medical, surgical, social and family history. There is no relevant family history pertinent to the presenting complaint <Berenice Lugo NP - Last Filed: 05/16/24 10:42> Exam Narrative: GENERAL: Well-appearing, well-nourished, and in no acute distress. HEAD: Normocephalic EYES: PERRLA, conjunctivae clear ENT: Nares clear, turbinates edematous and erythematous, clear discharge. Mucous membranes moist. TM pearly lopez with dull light reflex bilaterally; no tragal tenderness. Oropharynx not erythematous without lesions. Tonsils not enlarged and without exudate, no drooling, no hoarseness, no trismus, uvula midline. NECK: Supple. No lymphadenopathy CHEST: Clear to auscultation, breath sounds equal. No wheezing, rhonchi, rales, or stridor. No respiratory distress, speaks in full sentences. HEART: Regular rate and rhythm. No murmur heard. SKIN: Warm, dry, no rash. NEURO: Alert and oriented x3. PSYCH: Normal mood and affect <Berenice Lugo NP - Last Filed: 05/16/24 10:42> Course Course Emergency Course: Patient is aware of diagnosis, understands and agrees to treatment plan. Anticipatory guidance given. Patient agrees to follow-up as directed and is aware of reasons to seek care at the emergency department. Portions of this record may have been created with voice recognition software <Berenice Lugo NP - Last Filed: 05/16/24 10:42> Level of Care: Express Care Visit <Berenice Lugo NP - Last Filed: 05/16/24 10:42> Vital Signs Vital signs: Vital Signs Temperature 37.4 C 05/16/24 10:39 Pulse Rate 75 05/16/24 10:39 Respiratory Rate 16 05/16/24 10:39 Blood Pressure 144/99 H 05/16/24 10:39 Pulse Oximetry 99 05/16/24 10:39 Temperature 37.4 C 05/16/24 10:39 Pulse Rate 75 05/16/24 10:39 Respiratory Rate 16 05/16/24 10:39 Blood Pressure 149/107 H 05/16/24 10:45 Pulse Oximetry 99 05/16/24 10:39 Reviewed. <Berenice Lugo NP - Last Filed: 05/16/24 10:42> Vital Signs Temperature 37.4 C 05/16/24 10:39 Pulse Rate 75 05/16/24 10:39 Respiratory Rate 16 05/16/24 10:39 Blood Pressure 144/99 H 05/16/24 10:39 Pulse Oximetry 99 05/16/24 10:39 Temperature 37.4 C 05/16/24 10:39 Pulse Rate 75 05/16/24 10:39 Respiratory Rate 16 05/16/24 10:39 Blood Pressure 149/107 H 05/16/24 10:45 Pulse Oximetry 99 05/16/24 10:39 <Juan Montenegro APRN - Last Filed: 05/16/24 11:26> MDM - URI/Sore Throat MDM Narrative Medical decision making narrative: Differential diagnosis considered: Calvo virus, strep pharyngitis, allergic rhinitis, upper respiratory tract infection, sinusitis, rhinosinusitis, nasopharyngitis. viral pharyngitis, otitis media, otitis externa, pneumonia, bronchitis, viral cough syndrome, viral syndrome, and influenza. Exam findings show no acute concerns or changes; patient is non-toxic appearing and is in no distress. Patient is appropriate for outpatient treatment and follow-up. <Berenice Lugo NP - Last Filed: 05/16/24 10:42> Lab Data Attestation: I reviewed the patient's lab results. <Berenice Lugo NP - Last Filed: 05/16/24 10:42> Labs: Lab Results 05/16/24 Range/Units 11:13 POC Grp A Strep Screen Negative (Negative) <Berenice Lugo NP - Last Filed: 05/16/24 10:42> Lab Results 05/16/24 Range/Units 11:13 POC Grp A Strep Screen Negative (Negative) <Juan Montenegro, EMPLOYMENT MANAGER - Last Filed: 05/16/24 11:26> Critical Care Time Critical Care Time Critical Care Time: No <Berenice Lugo NP - Last Filed: 05/16/24 10:42> Discharge Plan Discharge Clinical Impression: Hypertension, condition or complication, Fever of unknown origin (FUO), delivery delivered <Berenice Lugo NP - Last Filed: 05/16/24 10:42> Patient Disposition: Acute Care Hospital <Berenice Lugo NP - Last Filed: 05/16/24 10:42> Condition: Guarded Prognosis <Berenice Lugo NP - Last Filed: 05/16/24 10:42> Additional Instructions: Go to [facility] for further evaluation and treatment <Berenice Lugo NP - Last Filed: 05/16/24 10:42> Prescriptions: No Action ferrous sulfate 325 mg (65 mg iron) tablet 325 mg PO DAILY Qty: 30 0RF <Berenice Lugo NP - Last Filed: 05/16/24 10:42> Follow-up/Referrals: Juan Parker MD [Primary Care Provider] - <Berenice Lugo NP - Last Filed: 05/16/24 10:42> Time of Disposition: 11:16 <Berenice Lugo NP - Last Filed: 05/16/24 10:42> 11:16 <Juan Montenegro APRN - Last Filed: 05/16/24 11:26>
[2024-05-16 10:45] VITALS: BP 149/107
--- NOTE | 2024-05-16 11:00 | ED_ITS ---
HPI - Fever General Chief Complaint: Fever Stated Complaint: fever,elevated blood pressure Time Seen by Provider: 05/16/24 11:04 Source: patient and RN notes reviewed Mode of arrival: ambulatory Limitations: no limitations History of Present Illness HPI Narrative: This is a 23-year-old female patient 9 days status post delivery who presents for evaluation of fever, hypertension and abdominal pain. Patient reports that she had to have chin due to large fetus size at 39 weeks. She labored for 2 days and only dilated to 7 cm so they proceeded to . Patient denies any complications during specifically denying gestational diabetes high pressure or proteinuria. Patient notes that the day of her induction she developed a fever before they ruptured membranes. Patient was empirically treated with antibiotics during hospital stay per patient report. Since discharge she has been on Tylenol and ibuprofen run the clock due to pain and thus has been fever free. Yesterday she did not have any Tylenol or ibuprofen and fever returned with T-max a 100.9?. Patient reports she initially had sore throat and her entire family had strep. Patient states she had negative viral testing in hospital. She reports her hemoglobin dropped to 7.2 but she received a ton of IV fluids during labor and . Today patient denies headache chest pain blurred vision or shortness a breath. She states overall she just has not felt well since yesterday. She reports lower abdominal pain denies dysuria. Patient denies any bleeding or drainage from C- section site. She reports that she called OBGYN yesterday about the return of fever and they felt she would be okay. Not checked her blood pressure yesterday before calling but today she checked her blood pressure and was greater than 160/100 so she came to get evaluated for these multiple symptoms. Patient states that she [facility] because she was hoping she just had strep. No past medical history and no home medications beyond the Tylenol and ibuprofen discussed above. Related Data Allergies Allergy/AdvReac Type Severity Reaction Status Date / Time amoxicillin [From Augmentin] Allergy Rash Verified 05/16/24 11:11 clavulanic acid Allergy Rash Verified 05/16/24 11:11 [From Augmentin] Review of Systems Review of Systems: All systems reviewed & are unremarkable except as noted in HPI and below PMFSH Family History Family History Mother Breast cancer Chronic obstructive pulmonary disease Sibling Asthma Sibling Asthma Social History Social History Smoking status: Never smoker Do You Feel Safe in your Home?: Yes Lack of Transportation: YES Lack of Food: Never True Current Housing: I Have Housing Concerned About Future Housing: No Difficulty Paying Gas/Electric Bills: No Difficulty Paying for Meds: No Currently Unemployed: No Education: Bachelor's Degree Difficulty w/ Childcare or Family Care: No Spiritual care concerns: No Exam Narrative: GENERAL: Facial and lower extremity swelling, awake, alert, oriented, no acute active distress HEAD: Normocephalic, atraumatic. Facial swelling ENT:? Mucous membranes moist. No erythema or exudate CHEST: Clear to auscultation.? No respiratory distress. HEART: Regular rate and rhythm. ? Normal peripheral pulses. ABDOMEN: Soft, non-distended, RUQ tenderness and bilateral lower quadrant tenderness. site clean, dry, glue intact, no drainage or erythema EXTREMITIES: Normal range of motion. Bilateral lower extremity edema SKIN: Warm dry normal color NEURO: Alert and oriented x3. No focal deficits noted. (reflex exam deferred) PSYCH: Normal mood and affect, tearful when finding out she needed to go to ER for further evaluation and treatment Course Course Level of Care: [facility] Visit Vital Signs Vital signs: Vital Signs Temperature 99.4 F 05/16/24 10:39 Pulse Rate 75 05/16/24 10:39 Respiratory Rate 16 05/16/24 10:39 Blood Pressure 144/99 H 05/16/24 10:39 Pulse Oximetry 99 05/16/24 10:39 Temperature 99.4 F 05/16/24 10:39 Pulse Rate 75 05/16/24 10:39 Respiratory Rate 16 05/16/24 10:39 Blood Pressure 149/107 H 05/16/24 10:45 Pulse Oximetry 99 05/16/24 10:39 Oxygen Delivery Room Air 05/16/24 11:00 Transfer Transfered to: [place] Transportation: Other (Private vehicle) Transfer rationale: Hypertension 9 days status post delivery, fever, right upper quadrant and bilateral lower quadrant abdominal pain/tenderness Accepting physician: Keiko De La Rosa/Dr. Romero Transfer comments: Patient declined EMS transfer which was offered, requested to go by private vehicle so she could stop and picker packer her breast pump from home. MDM - Fever MDM Narrative Medical decision making narrative: Differential diagnosis: Viral syndrome, strep pharyngitis, urinary tract infection, bloodstream infection, retained products of conception, endometritis, surgical site infection, preeclampsia, new onset benign hypertension Patient presented to [facility] for strep testing. She acknowledged that her symptoms have extensive list of differential diagnoses that cannot be adequately worked up in this setting and she agreed to ER transfer but declined EMS stating she wanted to drive so she could stop at home to picker packer breast pump. She denies headache, blurred vision or other neurologic symptoms. She was informed of the risk of progressing to eclampsia/seizure but the likelihood is quite low. Patient allowed to drive to ER without signing out AMA. Lab Data Lab results narrative: POC Strep negative Labs: Lab Results 05/16/24 Range/Units 11:13 POC Grp A Strep Screen Negative (Negative) Discharge Plan Discharge Clinical Impression: Hypertension, condition or complication, Fever of unknown origin (FUO), delivery delivered Patient Disposition: Acute Care Hospital Condition: Guarded Prognosis Additional Instructions: Go to [place] ER for further evaluation and treatment Prescriptions: No Action ferrous sulfate 325 mg (65 mg iron) tablet 325 mg PO DAILY Qty: 30 0RF Follow-up/Referrals: Juan Parker MD [Primary Care Provider] - Time of Disposition: 11:16
[2024-05-16 11:15] LABS: EDSTREPNEGPOS1 Negative (Negative)
== END 2024-05-16 11:15 | disposition short-term general hospital (02) ==
PROVIDERS: Emergency Provider Nurse Practitioner; PCP Obstetrics & Gynecology
DX: O86.4 Pyrexia of unknown origin following delivery (principal); O16.5 Unspecified maternal hypertension, complicating the puerperium
CPT/HCPCS: 87880; 99213; G0463

== ENCOUNTER 2024-05-16 12:25 | Observation (INO) | payer OTHER, SELFPAY ==
[2024-05-16] VITALS (9 sets, daily range): BP systolic 130–148; BP diastolic 72–94; PULSE 61–76; RESP 16; TEMP 36.4–36.9; O2SAT 96–99
--- NOTE | ~2024-05-16 | CT_ITS ---
EXAMINATION: CT abdomen pelvis w con DATE: 05/16/2024 14:51 INDICATION: Left lower quadrant abdominal pain. Fever. Recent section. TECHNIQUE: Computed tomography (CT) of the abdomen and pelvis was performed with 100 mL Omnipaque 350 intravenous contrast. Automated exposure control and iterative reconstruction technique were employe d. The dose-length product was 748.97 mGy-cm. COMPARISON: None. FINDINGS: The visualized portions of the lung bases are clear without pneumonia or pleural effusion. The heart size is normal. No pericardial effusion. The liver, gallbladder, spleen, pancreas, adrenal glands, and kidneys are normal. The uterus is enlarged, consistent with recent . The endomet rial complex is thickened at 2.2 cm. There are changes of recent section. There is hypodensi ty in the low anterior uterine segment at the site of the incision measuring 2.8 x 1.2 x 5.5 cm. Ther e are no pathologically enlarged lymph nodes. There is physiologic fluid in the pelvis. The bones are unremarkable. IMPRESSION: 1. Recent section. Thickening of the endometrial complex to 2.2 cm, which may be hematoma or retained products of conception. Reviewed, dictated and finalized at location A. CLUB MANAGER IMPRESSION: 1. Recent section. Thickening of the endometrial complex to 2.2 cm, wh ich may be hematoma or retained products of conception.
--- NOTE | 2024-05-16 13:37 | ED_ITS ---
HPI - General Adult General Chief complaint: Recheck/Abnormal Lab/Rx <Keiko De La Rosa APRN - Last Filed: 05/16/24 13:40> Stated complaint: htn, had csection 9 days ago <Keiko De La Rosa APRN - Last Filed: 05/16/24 13:40> Time Seen by Provider: 05/16/24 13:25 <Keiko De La Rosa APRN - Last Filed: 05/16/24 13:40> Focused HPI: patient is a 23-year-old female who presents to the ER after her recent . She reports she went into a with a fever, so the they gave her antibiotics. Patient reports she has been taking Tylenol and ibuprofen since her . Yesterday she stopped taking them and endorsed a low-grade fever again. Patient reports she went in to her primary care provider this morning and her blood pressure was 160/110. She reports she did not have any issues with preeclampsia during . Patient's PCP advised her to come here for evaluation. She denies any shortness of breath, chest pain, abnormal vaginal discharge, breast/nipple abnormalities, or pus/drainage/redness at her incision site. GENERAL: Well-appearing, well-nourished, and in no acute distress. HEAD: Normocephalic, atraumatic. CHEST: Clear to auscultation. ?No respiratory distress. HEART: Regular rate and rhythm.? NEURO: ?Alert and oriented x3. Patient screened in triage and initial orders placed.? ?Additional care and disposition to be based upon?diagnostic testing and treatment. <Keiko De La Rosa APRN - Last Filed: 05/16/24 13:40> Related Data Allergies/adverse reactions: Allergies Allergy/AdvReac Type Severity Reaction Status Date / Time amoxicillin [From Augmentin] Allergy Rash Verified 05/16/24 11:11 clavulanic acid Allergy Rash Verified 05/16/24 11:11 [From Augmentin] <Keiko De La Rosa APRN - Last Filed: 05/16/24 13:40> PMFSH Family History Family History: Family History Mother Breast cancer Chronic obstructive pulmonary disease Sibling Asthma Sibling Asthma <Keiko De La Rosa APRN - Last Filed: 05/16/24 13:40> Social History Social History: Social History Smoking status: Never smoker Do You Feel Safe in your Home?: Yes Lack of Transportation: YES Lack of Food: Never True Current Housing: I Have Housing Concerned About Future Housing: No Difficulty Paying Gas/Electric Bills: No Difficulty Paying for Meds: No Currently Unemployed: No Education: Bachelor's Degree Difficulty w/ Childcare or Family Care: No Spiritual care concerns: No <Keiko De La Rosa APRN - Last Filed: 05/16/24 13:40> Exam Narrative: Constitutional: Generally well appearing, no acute distress Head: Atraumatic, no deformities. Eyes: Pupils equal, round, and reactive to light. Neck: Supple, no tracheal deviation, no JVD. ENMT: Mucous membranes moist Cardiovascular: S1, S2 auscultated. No murmurs, rubs, or gallops. No S3/S4. Normal Distal pulses. No peripheral edema. Respiratory: Lung sounds equal. No wheezes, rales, or rhonchi. Gastrointestinal: Abdomen was soft and non-tender. Non-distended. No rebound or guarding. Genitourinary: Deferred Musculoskeletal: Normal muscle tone and bulk. No obvious deformities or tenderness over extremities. Skin: No rashes. wound well-appearing, closed Neurological: Strength 5/5 in extremities. Cranial nerves I-XII grossly intact. Distal sensation intact. Mental Status: Awake, alert and oriented x3. Follows commands <Issa Ingram MD - Last Filed: 05/16/24 16:44> Course Vital Signs Vital signs: Vital Signs Temperature 36.4 C 05/16/24 12:28 Pulse Rate 61 05/16/24 12:28 Respiratory Rate 16 05/16/24 12:28 Blood Pressure 146/91 H 05/16/24 12:28 Pulse Oximetry 96 05/16/24 12:28 Temperature 36.4 C 05/16/24 12:28 Pulse Rate 61 05/16/24 12:28 Respiratory Rate 16 05/16/24 12:28 Blood Pressure 146/91 H 05/16/24 12:28 Pulse Oximetry 96 05/16/24 12:28 <Keiko De La Rosa, TALENT DEVELOPMENT COORDINATOR - Last Filed: 05/16/24 13:40> Vital Signs Temperature 36.4 C 05/16/24 12:28 Pulse Rate 61 05/16/24 12:28 Respiratory Rate 16 05/16/24 12:28 Blood Pressure 146/91 H 05/16/24 12:28 Pulse Oximetry 96 05/16/24 12:28 Temperature 36.4 C 05/16/24 12:28 Pulse Rate 61 05/16/24 12:28 Respiratory Rate 16 05/16/24 12:28 Blood Pressure 146/91 H 05/16/24 12:28 Pulse Oximetry 96 05/16/24 12:28 <Issa Ingram MD - Last Filed: 05/16/24 16:44> Medical Decision Making MDM Narrative Medical decision making narrative: Patient had about a week ago, sent in by Urgent Care for hypertension. She is hypertensive here 146/91. Obtained workup for preeclampsia and her results are somewhat vague, so I spoke with OBG PAOLO covering for her OBGYN doctor Rafia who like patient transferred to Labor and delivery floor for observation. Patient is agreeable. <Issa Ingram MD - Last Filed: 05/16/24 16:44> Vital Signs Vital Signs: Vital Signs Temperature 36.4 C 05/16/24 12:28 Pulse Rate 61 05/16/24 12:28 Respiratory Rate 16 05/16/24 12:28 Blood Pressure 146/91 H 05/16/24 12:28 Pulse Oximetry 96 05/16/24 12:28 Temperature 36.4 C 05/16/24 12:28 Pulse Rate 61 05/16/24 12:28 Respiratory Rate 16 05/16/24 12:28 Blood Pressure 146/91 H 05/16/24 12:28 Pulse Oximetry 96 05/16/24 12:28 <Keiko De La Rosa, TALENT DEVELOPMENT COORDINATOR - Last Filed: 05/16/24 13:40> Vital Signs Temperature 36.4 C 05/16/24 12:28 Pulse Rate 61 05/16/24 12:28 Respiratory Rate 16 05/16/24 12:28 Blood Pressure 146/91 H 05/16/24 12:28 Pulse Oximetry 96 05/16/24 12:28 Temperature 36.4 C 05/16/24 12:28 Pulse Rate 61 05/16/24 12:28 Respiratory Rate 16 05/16/24 12:28 Blood Pressure 146/91 H 05/16/24 12:28 Pulse Oximetry 96 05/16/24 12:28 <Issa Ingram MD - Last Filed: 05/16/24 16:44> Lab Data Result diagrams: 05/16/24 14:36 05/16/24 14:45 <Keiko De La Rosa APRN - Last Filed: 05/16/24 13:40> Labs: Lab Results 05/16/24 05/16/24 05/16/24 Range/Units 13:35 14:36 14:45 WBC 12.7 H (4.5-10.0) K/mm3 RBC 3.82 L (4.2-5.4) M/mm3 Hgb 9.4 L (12.0-15.0) g/dL Hct 31.7 L (37.0-47.0) % MCV 83.0 (80-100) fl MCH 24.6 L (26-34) pg MCHC 29.7 L (32-36) g/dl RDW 16.6 H (11.5-14.5) % Plt Count 548 H D (150-375) k/mm3 MPV 9.6 (7.4-10.4) fl Immature Gran % (Auto) 8.5 H (0-0.5) % Neut % (Auto) 71.8 (45.5-73.1) % Lymph % (Auto) 13.0 L (18.3-44.2) % [place] % (Auto) 5.5 (2.6-8.5) % Eos % (Auto) 0.3 (0-4.4) % Baso % (Auto) 0.9 (0.2-1.2) % Lymph # (Auto) 1.65 (0.9-3.2) K/mm3 [place] # (Auto) 0.7 H (0.1-0.6) K/mm3 Eos # (Auto) 0.0 (0-0.3) K/mm3 Baso # (Auto) 0.1 (0.0-0.1) K/mm3 Abs Immat Gran (auto) 1.08 H (0.00-0.031) K/mm3 Absolute Neuts (auto) 9.1 H (1.3-6.7) K/mm3 Absolute Nucleated RBC 0.080 H (0.0-0.012) K/mm3 Nucleated RBC % 0.6 H (0.0-0.2) % Platelet Estimate Increased (Adequate) Hypochromasia 1+ Anisocytosis 1+ Ovalocytes 1+ Schistocytes None seen PT 14.3 (11.1-14.7) Seconds INR 1.1 APTT 33.3 (22.3-36.8) Seconds Sodium 135 L (137-145) mmol/L Potassium 3.7 (3.4-5.0) mmol/L Chloride 105 (98-107) mmol/L Carbon Dioxide 24 (22-30) mmol/L Anion Gap 6 (4-12) mmol/L BUN 11 (7-17) mg/dL Creatinine 0.70 0.80 (0.7-1.0) mg/dL Estim Creat Clear Calc Not Reportable Not Reportable Estimated GFR > 60 > 60 (59 - ) Glucose 107 (65-110) mg/dL Uric Acid 5.2 (2.5-7.5) mg/dL Calcium 8.7 (8.4-10.2) mg/dL Total Bilirubin 0.5 (0.2-1.3) mg/dL AST 30 (14-36) U/L ALT 48 H (6-35) U/L Alkaline Phosphatase 183 H (38-126) U/L Lactate Dehydrogenase 377 H (120-246) U/L Total Protein 7.0 (6.3-8.2) g/dL Albumin 3.7 (3.5-5.1) g/dL Lipase 44 (23-300) U/L Urine Color Yellow (Yellow) Urine Appearance Clear (Clear) Urine pH 7.5 (5.0-9.0) Ur Specific [place] 1.014 (1.001-1.035) Urine Protein Trace (Negative) mg/dL Urine Glucose (UA) Negative (Negative) mg/dL Urine Ketones Negative (Negative) mg/dL Ur Blood (Man) 3+ H (Negative) Urine Nitrate Negative (Negative) Urine Bilirubin Negative (Negative) Urine Urobilinogen 1.0 (<2.0) mg/dL Leukocyte Esterase Rfl 2+ H (Negative) WAQAS/UL Urine RBC 3-5 H (0-2) /hpf Urine WBC 51-100 H (0-3) /hpf Ur Squamous Epith Cells Few (Few) /hpf Urine Bacteria Rare /hpf Urine Casts 0-2 POC Urine HCG, Qual Negative (Negative) <Keiko Hobbsuble, TALENT DEVELOPMENT COORDINATOR - Last Filed: 05/16/24 13:40> Lab Results 05/16/24 05/16/24 05/16/24 Range/Units 13:35 14:36 14:45 WBC 12.7 H (4.5-10.0) K/mm3 RBC 3.82 L (4.2-5.4) M/mm3 Hgb 9.4 L (12.0-15.0) g/dL Hct 31.7 L (37.0-47.0) % MCV 83.0 (80-100) fl MCH 24.6 L (26-34) pg MCHC 29.7 L (32-36) g/dl RDW 16.6 H (11.5-14.5) % Plt Count 548 H D (150-375) k/mm3 MPV 9.6 (7.4-10.4) fl Immature Gran % (Auto) 8.5 H (0-0.5) % Neut % (Auto) 71.8 (45.5-73.1) % Lymph % (Auto) 13.0 L (18.3-44.2) % [place] % (Auto) 5.5 (2.6-8.5) % Eos % (Auto) 0.3 (0-4.4) % Baso % (Auto) 0.9 (0.2-1.2) % Lymph # (Auto) 1.65 (0.9-3.2) K/mm3 [place] # (Auto) 0.7 H (0.1-0.6) K/mm3 Eos # (Auto) 0.0 (0-0.3) K/mm3 Baso # (Auto) 0.1 (0.0-0.1) K/mm3 Abs Immat Gran (auto) 1.08 H (0.00-0.031) K/mm3 Absolute Neuts (auto) 9.1 H (1.3-6.7) K/mm3 Absolute Nucleated RBC 0.080 H (0.0-0.012) K/mm3 Nucleated RBC % 0.6 H (0.0-0.2) % Platelet Estimate Increased (Adequate) Hypochromasia 1+ Anisocytosis 1+ Ovalocytes 1+ Schistocytes None seen PT 14.3 (11.1-14.7) Seconds INR 1.1 APTT 33.3 (22.3-36.8) Seconds Sodium 135 L (137-145) mmol/L Potassium 3.7 (3.4-5.0) mmol/L Chloride 105 (98-107) mmol/L Carbon Dioxide 24 (22-30) mmol/L Anion Gap 6 (4-12) mmol/L BUN 11 (7-17) mg/dL Creatinine 0.70 0.80 (0.7-1.0) mg/dL Estim Creat Clear Calc Not Reportable Not Reportable Estimated GFR > 60 > 60 (59 - ) Glucose 107 (65-110) mg/dL Uric Acid 5.2 (2.5-7.5) mg/dL Calcium 8.7 (8.4-10.2) mg/dL Total Bilirubin 0.5 (0.2-1.3) mg/dL AST 30 (14-36) U/L ALT 48 H (6-35) U/L Alkaline Phosphatase 183 H (38-126) U/L Lactate Dehydrogenase 377 H (120-246) U/L Total Protein 7.0 (6.3-8.2) g/dL Albumin 3.7 (3.5-5.1) g/dL Lipase 44 (23-300) U/L Urine Color Yellow (Yellow) Urine Appearance Clear (Clear) Urine pH 7.5 (5.0-9.0) Ur Specific [place] 1.014 (1.001-1.035) Urine Protein Trace (Negative) mg/dL Urine Glucose (UA) Negative (Negative) mg/dL Urine Ketones Negative (Negative) mg/dL Ur Blood (Man) 3+ H (Negative) Urine Nitrate Negative (Negative) Urine Bilirubin Negative (Negative) Urine Urobilinogen 1.0 (<2.0) mg/dL Leukocyte Esterase Rfl 2+ H (Negative) WAQAS/UL Urine RBC 3-5 H (0-2) /hpf Urine WBC 51-100 H (0-3) /hpf Ur Squamous Epith Cells Few (Few) /hpf Urine Bacteria Rare /hpf Urine Casts 0-2 POC Urine HCG, Qual Negative (Negative) <Issa Ingram MD - Last Filed: 05/16/24 16:44> Discharge Plan Discharge Clinical Impression: delivery delivered, Pre-eclampsia <Keiko De La Rosa APRN - Last Filed: 05/16/24 13:40> Patient Disposition: Still a Patient <Keiko De La Rosa APRN - Last Filed: 05/16/24 13:40> Condition: Stable <Keiko De La Rosa APRN - Last Filed: 05/16/24 13:40> Prescriptions: No Action ferrous sulfate 325 mg (65 mg iron) tablet 325 mg PO DAILY Qty: 30 0RF <Keiko De La Rosa APRN - Last Filed: 05/16/24 13:40> Follow-up/Referrals: Juan Parker MD [Primary Care Provider] - <Keiko De La Rosa APRN - Last Filed: 05/16/24 13:40> Time of Disposition: 16:43 <Keiko De La Rosa APRN - Last Filed: 05/16/24 13:40> 16:43 <Issa Ingram MD - Last Filed: 05/16/24 16:44>
[2024-05-16 14:41] LABS: BEDSIDEPREGUCG Negative (Negative)
[2024-05-16 14:48] LABS: Basophils Absolute Auto 0.1 K/mm3 (0.0-0.1); Basophils Percent Auto 0.9 % (0.2-1.2); Eosinophils Percent Auto 0.3 % (0-4.4); Hematocrit 31.7 % (37.0-47.0); Hemoglobin 9.4 g/dL (12.0-15.0); Immature Granulocyte Absolute 1.08 K/mm3 (0.00-0.031); Immature Granulocyte Percent A 8.5 % (0-0.5); Lymphocytes Absolute Auto 1.65 K/mm3 (0.9-3.2); Mean Corpuscular HGB Conc 29.7 g/dl (32-36); Mean Corpuscular Hemoglobin 24.6 pg (26-34); Mean Platelet Volume 9.6 fl (7.4-10.4); Monocytes Absolute Auto 0.7 K/mm3 (0.1-0.6); Monocytes Percent Auto 5.5 % (2.6-8.5); Neutrophils Absolute Auto 9.1 K/mm3 (1.3-6.7); Neutrophils Percent Auto 71.8 % (45.5-73.1); Nucleated Red Blood Cells Perc 0.6 % (0.0-0.2); Platelet Count Result 548 k/mm3 (150-375); Red Blood Count 3.82 M/mm3 (4.2-5.4); Red Cell Distribution Width 16.6 % (11.5-14.5); White Blood Count 12.7 K/mm3 (4.5-10.0)
[2024-05-16 14:49] LABS: Estimated Glomerular Filt Rate > 60
[2024-05-16 14:50] LABS: Add Urine Microscopic? YES; Appearance Urine Clear (Clear); Bacteria Urine Rare /hpf; Bilirubin Urine Negative (Negative); Blood Urine 3+ (Negative); Color Urine Yellow (Yellow); Glucose Urine UA Negative (Negative); Ketones Urine Negative (Negative); Leukocyte Esterase Ur 2+ LEU/UL (Negative); Nitrate Urine Negative (Negative); Non Pathogenic Casts 0-2; Protein Urine Trace mg/dL (Negative); Specific Grav Ur 1.014 (1.001-1.035); Squamous Epithelial Cell Urine Few /hpf (Few); WBC Urine 51-100 /hpf (0-3); pH Urine 7.5 (5.0-9.0)
[2024-05-16 14:56] LABS: Alanine Aminotransferase 48 U/L (6-35); Albumin Level 3.7 g/dL (3.5-5.1); Alkaline Phosphatase 183 U/L (38-126); Anion Gap 6 mmol/L (4-12); Aspartate Amino Transferase 30 U/L (14-36); Bilirubin,Total 0.5 mg/dL (0.2-1.3); Blood Urea Nitrogen 11 mg/dL (7-17); Calcium 8.7 mg/dL (8.4-10.2); Carbon Dioxide 24 mmol/L (22-30); Chloride 105 mmol/L (98-107); Estimated Glomerular Filt Rate > 60; Glucose 107 mg/dL (65-110); Lipase 44 U/L (23-300); Potassium 3.7 mmol/L (3.4-5.0); Sodium 135 mmol/L (137-145)
[2024-05-16 15:04] LABS: INR 1.1; Prothrombin Time 14.3 Seconds (11.1-14.7)
[2024-05-16 15:05] LABS: Partial Thromboplastin Time 33.3 Seconds (22.3-36.8)
[2024-05-16 15:32] LABS: Platelet Estimate Increased (Adequate)
[2024-05-16 15:36] LABS: Anisocytosis 1+; Hypochromasia 1+; Ovalocytes 1+; Schistocytes None Seen
[2024-05-16 16:19] LABS: Lactate Dehydrogenase 377 U/L (120-246); Uric Acid 5.2 mg/dL (2.5-7.5)
--- NOTE | 2024-05-19 07:58 | P.PNOB_ITS ---
OB - Triage/Final Diagnosis Visit Information Reason for evaluation: other ( preeclampsia) Comments/Additional reasons for admission: I have assessed the risk for this patient, Jolanta Sousa, and determined that she would benefit from observation care. Evaluation Laboratory results: Laboratory Tests 05/16/24 05/16/24 05/16/24 13:35 14:36 14:45 WBC 12.7 H RBC 3.82 L Hgb 9.4 L Hct 31.7 L MCV 83.0 MCH 24.6 L MCHC 29.7 L RDW 16.6 H Plt Count 548 H D MPV 9.6 Immature Gran % (Auto) 8.5 H Neut % (Auto) 71.8 Lymph % (Auto) 13.0 L [place] % (Auto) 5.5 Eos % (Auto) 0.3 Baso % (Auto) 0.9 Lymph # (Auto) 1.65 [place] # (Auto) 0.7 H Eos # (Auto) 0.0 Baso # (Auto) 0.1 Abs Immat Gran (auto) 1.08 H Absolute Neuts (auto) 9.1 H Absolute Nucleated RBC 0.080 H Nucleated RBC % 0.6 H Platelet Estimate Increased Hypochromasia 1+ Anisocytosis 1+ Ovalocytes 1+ Schistocytes None seen PT 14.3 INR 1.1 APTT 33.3 Sodium 135 L Potassium 3.7 Chloride 105 Carbon Dioxide 24 Anion Gap 6 BUN 11 Creatinine 0.70 0.80 Estim Creat Clear Calc Not Reportable Not Reportable Estimated GFR > 60 > 60 Glucose 107 Uric Acid 5.2 Calcium 8.7 Total Bilirubin 0.5 AST 30 ALT 48 H Alkaline Phosphatase 183 H Lactate Dehydrogenase 377 H Total Protein 7.0 Albumin 3.7 Lipase 44 Urine Color Yellow Urine Appearance Clear Urine pH 7.5 Ur Specific [place] 1.014 Urine Protein Trace Urine Glucose (UA) Negative Urine Ketones Negative Ur Blood (Man) 3+ H Urine Nitrate Negative Urine Bilirubin Negative Urine Urobilinogen 1.0 Leukocyte Esterase Rfl 2+ H Urine RBC 3-5 H Urine WBC 51-100 H Ur Squamous Epith Cells Few Urine Bacteria Rare Urine Casts 0-2 POC Urine HCG, Qual Negative
== END 2024-05-16 21:38 | disposition home or self-care (01) ==
LOC: ANHED 16:43 → ANHOBPP 17:55
PROVIDERS: Registered Nurse; Admitting Provider Obstetrics & Gynecology; Emergency Provider Emergency Medicine; PCP Obstetrics & Gynecology; Visit Provider Obstetrics & Gynecology Gynecology
DX: O14.95 Unspecified pre-eclampsia, complicating the puerperium (principal)
CPT/HCPCS: 36415; 74177; 80053; 81001; 81025; 83615; 83690; 84550; 85025; 85610; 85730; 87086; 99285; G0378; G0379; Q9967

== ENCOUNTER 2025-03-03 15:31 | Outpatient (CLI) | payer OTHER, SELFPAY ==
--- NOTE | ~2025-03-03 | US_ITS ---
EXAMINATION: US OB <=14 wk fetus w TV DATE: 03/03/2025 16:01 INDICATION: Evaluate viability TECHNIQUE: Real-time transabdominal and transvaginal obstetric ultrasound. FINDINGS: No prior studies for comparison. The uterus measures 14.7 x 5.5 x 7.9 cm. There is an intrauterine gestational sac, with pole identified. The crown rump length measures 2.05 cm, which correlates with a estimated gestational age of 8 weeks 5 days. heart tones are identified measuring 173 BPM. IMPRESSION: 1. SL IUP with an EGA of 8 weeks, 5 days (EDC by current ultrasound of 10/08/2025). Reviewed, dictated and finalized at location O. IMPRESSION: 1. SL IUP with an EGA of 8 weeks, 5 days (EDC by current ultrasound of 10/09/19).
== END 2025-03-03 15:32 | disposition home or self-care (01) ==
LOC: MICIMG 15:31
PROVIDERS: PCP Obstetrics & Gynecology; Visit Provider Nurse Practitioner Family
DX: O36.80X0 Pregnancy with inconclusive fetal viability, not applicable or unspecified (principal); Z3A.00 Weeks of gestation of pregnancy not specified
CPT/HCPCS: 76801; 76817

== ENCOUNTER 2025-04-02 12:02 | Outpatient (CLI) | payer OTHER, SELFPAY ==
[2025-04-02 12:35] LABS: Hematocrit 39.9 % (37.0-47.0); Hemoglobin 13.5 g/dL (12.0-15.0); Mean Corpuscular HGB Conc 33.8 g/dl (32-36); Mean Corpuscular Hemoglobin 29.8 pg (26-34); Mean Corpuscular Volume 88.1 fl (80-100); Platelet Count Result 279 k/mm3 (150-375); Red Blood Count 4.53 M/mm3 (4.2-5.4); White Blood Count 13.5 K/mm3 (4.5-10.0)
[2025-04-02 12:41] LABS: Add Urine Microscopic? NO; Appearance Urine Clear (Clear); Glucose Urine UA Negative (Negative); Leukocyte Esterase Ur Negative LEU/UL (Negative); Nitrate Urine Negative (Negative); Specific Grav Ur 1.025 (1.001-1.035)
[2025-04-02 13:24] LABS: Syphilis IgG/IgM Antibody Non-Reactive (Nonreactive)
[2025-04-02 13:26] LABS: Thyroid Stimulating Hormone 2.270 uIU/mL (0.465-4.680)
[2025-04-02 13:27] LABS: Hepatitis B Surface Antigen Negative (Negative)
[2025-04-02 13:36] LABS: HIV 1/2 Ab P24 Ag Result Negative (Negative)
[2025-04-03 15:09] LABS: Varicella-Zoster Ab, IgG Reactive (Non Reactive); Varicella-Zoster Ab, IgM <0.91 index (0.00-0.90)
== END 2025-04-02 12:03 | disposition home or self-care (01) ==
LOC: ANHLAB 12:03
PROVIDERS: Visit Provider Obstetrics & Gynecology
DX: Z34.90 Encounter for supervision of normal pregnancy, unspecified, unspecified trimester (principal); Z3A.00 Weeks of gestation of pregnancy not specified
CPT/HCPCS: 36415; 81003; 83020; 84443; 85027; 85660; 86593; 86703; 86762; 86787; 86803; 86850; 86900; 86901; 87086; 87340; G0432

== ENCOUNTER 2025-05-19 15:10 | Outpatient (CLI) | payer OTHER, SELFPAY ==
--- NOTE | ~2025-05-19 | US_ITS ---
EXAMINATION: US OB /maternal detail DATE: 05/19/2025 16:46 INDICATION: Assess anatomy during second trimester . TECHNIQUE: Multiple obstetric sonographic images performed. FINDINGS: There is a single living fetus in transverse lie with. vertex to maternal right. The placenta is anterior and appears low-lying with caudal margin approximately 3 cm from the region internal cervical os. Amniotic fluid volume is subjectively normal with normal deepest vertical pocket measurement of 3.9 cm. heart rate of 136 beats per minute. The following anatomy was identified as normal: Ventricles, choroid plexus, falx and cava septum pellucidum Cerebellum and cisterna magna Nuchal fold Upper lip Spine Heart Diaphragm Stomach Kidneys Bladder 3 vessel cord and cord insertion Bilateral upper and lower extremities including hands and feet The following biometric data were obtained: BPD: 4.6 cm -> 19 weeks 6 days Head circumference: 17.3 cm -> 19 weeks 6 days Abdominal circumference: 15.1 cm -> 20 weeks 2 days Femur length: 3.0 cm -> 19 weeks 2 days These measurements are concordant. Head circumference to abdominal circumference ratio: 1.15 (normal range 1.08-1.26). Estimated weight: 315 g (+/-) 47 g. or 11 oz. (+/-) 2 oz. IMPRESSION: 1. Single living fetus in transverse lie with heart rate of 136 bpm. 2. Estimated weight is 52nd percentile by Hadlock criteria when 10/08/2025 is used as the RUBÉN. Please correlate with clinical information or earlier ultrasounds for most accurate RUBÉN. 3. Normal survey. 4. Anterior placenta which appears low-lying with caudal margin 3 cm from the region of the internal cervical os. Reviewed, dictated and finalized at location A. CTOR OF RETAIL ANALYTICS IMPRESSION: 1. Single living fetus in transverse lie with heart rate of 136 bpm. 2. Estimated weight is 52nd percentile by Hadlock criteria when 10/08/2025 is used as the RUBÉN. Please correlate with clinical information or earlier ultr asounds for most accurate RUBÉN. 3. Normal survey. 4. Anterior placenta which appears low-lying with caudal margin 3 cm from the r egion of the internal cervical os.
== END 2025-05-19 15:11 | disposition home or self-care (01) ==
PROVIDERS: Visit Provider Nurse Practitioner Family
DX: Z34.91 Encounter for supervision of normal pregnancy, unspecified, first trimester (principal); Z3A.11 11 weeks gestation of pregnancy
CPT/HCPCS: 76805

== ENCOUNTER 2025-06-26 17:46 | Observation (INO) | payer OTHER, SELFPAY ==
[2025-06-26] VITALS (21 sets, daily range): BP systolic 103–122; BP diastolic 61–73; PULSE 102–216; TEMP 36.7; O2SAT 96–100; BMI 32.8
--- NOTE | 2025-06-26 18:00 | PC.NURSE ---
Pt arrives to unit with cramping and tightening, dizziness, and heart pounding.
[2025-06-26 19:05] LABS: Add Urine Microscopic? YES; Appearance Urine Turbid (Clear); Glucose Urine UA Trace mg/dL (Negative); Leukocyte Esterase Ur Negative LEU/UL (Negative); Nitrate Urine Negative (Negative); Non Pathogenic Casts 0-2; Specific Grav Ur 1.021 (1.001-1.035)
--- NOTE | 2025-06-26 19:18 | PC.NURSE ---
Pt reports feeling better, denies cramping, dizziness and heart pounding at this time.
--- NOTE | 2025-06-26 19:29 | PC.NURSE ---
Dr. Parker returned call, update on pt, feeling better, labs, and tracing. Orders received to discharge pt with instructions to keep next scheduled appointment and when to return to the unit.
--- NOTE | 2025-06-26 20:05 | PC.NURSE ---
Pt discharged with instructions to keep next scheduled appointment and when to return to the unit, pt verbalizes understanding.
--- NOTE | 2025-06-27 03:00 | OBADM ---
This patient, Jolanta Miller, admitted to the OB room [facility] for observation. Patient/family oriented to hospital policies and general routines including ID bracelet, bed and alarms, visiting hours, pain management, procedures, bathroom and other care routines, personal items, smoking policy, room service/diet, and visiting hours. Patient/Family are encouraged to report perceived risks to care and to ask questions if they do not understand what they are told or what they should do.
--- NOTE | 2025-07-15 09:13 | PM.OBTRLD ---
OB - Triage/Final Diagnosis Visit Information Comments/Additional reasons for admission: I have assessed the risk for this patient, Jolanta Miller, and determined that she would benefit from observation care. Evaluation Laboratory results: Laboratory Tests 06/26/25 18:30 Urine Color Yellow Urine Appearance Turbid H Urine pH 7.0 Ur Specific [place] 1.021 Urine Protein Negative Urine Glucose (UA) Trace H Urine Ketones Trace H Ur Blood (Man) Negative Urine Nitrate Negative Urine Bilirubin Negative Urine Urobilinogen 1.0 Leukocyte Esterase Rfl Negative Urine RBC 0-2 Urine WBC 0-5 Ur Squamous Epith Cells Occasional Urine Bacteria 1+ H Urine Casts 0-2 Final Diagnosis (1) Abdominal cramping affecting : Code(s): O26.899 - Other specified related conditions, unspecified trimester; R10.9 - Unspecified abdominal pain Status: Acute
== END 2025-06-26 20:05 | disposition home or self-care (01) ==
PROVIDERS: Admitting Provider Obstetrics & Gynecology; Visit Provider Obstetrics & Gynecology
DX: O26.892 Other specified pregnancy related conditions, second trimester (principal); Z3A.25 25 weeks gestation of pregnancy; R10.9 Unspecified abdominal pain
CPT/HCPCS: 81001; G0378; G0379